=== PATIENT | female | born 1945 | race Caucasian/White ===

== ENCOUNTER 2021-06-30 11:08 | Outpatient (CLI) | payer MEDICARE, OTHER | END 2021-06-30 11:09 | disposition critical access hospital (66) | LOC: EMS 11:08 | DX: R53.1 Weakness (principal); R61 Generalized hyperhidrosis; R55 Syncope and collapse | CPT/HCPCS: A0425; A0429 ==

== ENCOUNTER 2021-06-30 11:32 | Emergency (ER) | payer MEDICARE, OTHER ==
[2021-06-30] MEDS ORDERED: SODIUM CHLORIDE 0.9% 1,000 ML IV STA ×2 (11:54→12:44)
[2021-06-30 12:04] LABS: BASOPHILS % (AUTO) 0.2 %; EOSINOPHILS % (AUTO) 0.1 %; HCT - HEMATOCRIT 47.9 % (37.0-47.0); HGB - HEMOGLOBIN 16.6 g/dL (12.0-16.0); LYMPHOCYTES # (AUTO) 1.2 10^3/uL (1.5-3.5); LYMPHOCYTES % (AUTO) 9.3 %; MEAN CORPUSCULAR HEMOGLOBIN 34.5 pg (27.0-31.0); MEAN CORPUSCULAR HGB CONC 34.7 g/dL (32.0-36.0); MEAN CORPUSCULAR VOLUME 99.6 fL (81.0-99.0); MEAN PLATELET VOLUME 9.2 fL (7.9-10.8); MONOCYTES # (AUTO) 0.6 10^3/uL (0.0-1.0); MONOCYTES % (AUTO) 4.8 %; NEUTROPHILS # (AUTO) 10.6 10^3/uL (1.5-6.6); NEUTROPHILS % (AUTO) 85.3 %; PLT - PLATELET COUNT 253 10^3/uL (130-450); RED BLOOD COUNT 4.81 10^6/uL (4.20-5.40); RED CELL DISTRIBUTION WIDTH 13.2 % (12.0-15.0); WHITE BLOOD COUNT 12.4 x10^3/uL (4.8-10.8)
[2021-06-30 12:18] LABS: ALBUMIN 4.5 g/dL (3.2-5.5); ALBUMIN/GLOBULIN RATIO 1.1 (1.0-2.2); BILIRUBIN,TOTAL 2.9 mg/dL (0.2-1.0); CALCIUM 9.5 mg/dL (8.5-10.3); CREATININE 1.1 mg/dL (0.4-1.0); POTASSIUM 2.9 mmol/L (3.5-5.0); TOTAL PROTEIN 8.6 g/dL (6.7-8.2)
--- NOTE | 2021-06-30 12:45 | ED Physician Documentation ---
History of Present Illness - Stated complaint Stated Complaint: WEAKNESS - Chief complaint Chief Complaint: Neuro - History obtained from History obtained from: Patient - History of Present Illness Timing: Today PD PAST MEDICAL HISTORY - Present Medications Home Medications: Ambulatory Orders Medication Instructions Recorded Confirmed Aspirin [Terry Aspirin] 81 mg PO DAILY 06/30/21 06/30/21 - Allergies Allergies/Adverse Reactions: Allergies Allergy/AdvReac Type Severity Reaction Status Date / Time No Known Drug Allergies Allergy Verified 06/30/21 11:40 Results - Vitals Vitals: Vital Signs - 24 hr 06/30/21 11:37 Temperature 36.7 C Heart Rate 127 H Respiratory 24 Rate Blood Pressure 139/89 H O2 Saturation 98 Oxygen O2 Source Room air - EKG (time done) 1154 Rate: Rate (enter#) (115) Rhythm: Sinus tachycardia [place]: Normal Intervals: Normal [place] QRS: Normal Ischemia: Normal ST segments - Labs Labs: Laboratory Tests 06/30/21 06/30/21 06/30/21 11:58 11:58 11:58 WBC 12.4 H RBC 4.81 Hgb 16.6 H Hct 47.9 H MCV 99.6 H MCH 34.5 H MCHC 34.7 RDW 13.2 Plt Count 253 MPV 9.2 Neut # (Auto) 10.6 H Lymph # (Auto) 1.2 L [place] # (Auto) 0.6 Eos # (Auto) 0.0 Baso # (Auto) 0.0 Absolute Nucleated RBC 0.00 Nucleated RBC % 0.0 Sodium 129 L Potassium 2.9 L Chloride 90 L Carbon Dioxide 22 Anion Gap 17.0 H BUN 14 Creatinine 1.1 H Estimated GFR (MDRD) 49 L Glucose 157 H Calcium 9.5 Total Bilirubin 2.9 H AST 54 H ALT 34 Alkaline Phosphatase 50 Troponin I High Sens 7.4 Total Protein 8.6 H Albumin 4.5 Globulin 4.1 Albumin/Globulin Ratio 1.1 Lipase 46
[2021-06-30 13:01] LABS: MUDS CUTOFF CONCENTRATIONS CUTOFF CONC BELOW:
[2021-06-30 13:03] LABS: GLUCOSE, URINE (UA) NEGATIVE (NEGATIVE); KETONES,URINE (UA) 40 mg/dL (NEGATIVE); LEUKOCYTE ESTERASE, URINE MODERATE (NEGATIVE); NITRITE,URINE NEGATIVE (NEGATIVE); OCCULT BLOOD,URINE NEGATIVE (NEGATIVE); PH,URINE 5.5 PH (5.0-7.5); PROTEIN,URINE 30 mg/dL (NEGATIVE); UROBILINOGEN,URINE 1 (NORMAL) E.U./dL (NORMAL)
[2021-06-30] MEDS ORDERED: METOPROLOL TARTRATE 50 MG TABLET PO STA (13:14)
[2021-06-30 13:32] LABS: BILIRUBIN,URINE NEGATIVE (NEGATIVE); CLARITY,URINE CLEAR (CLEAR); HCG UR QUAL NEGATIVE; ICTOTEST,URINE NEGATIVE
[2021-06-30 13:33] LABS: BACTERIA,URINE Few /HPF (None Seen); EPITHELIAL CELLS,UR None Seen /HPF (<= Few); RBC,URINE N /HPF (0-5); SQUAMOUS EPITHELIAL CELL,UR MOD Squamous (<= Few); WBC CLUMPS,URINE NONE SEEN; WBC,URINE >25 /HPF (0-5)
[2021-06-30 13:48] LABS: AMPHETAMINE SCREEN,URINE NEGATIVE (NEGATIVE); BARBITURATE SCREEN,UR NEGATIVE (NEGATIVE); BENZODIAZEPINES SCREEN, URINE NEGATIVE (NEGATIVE); COCAINE SCREEN URINE NEGATIVE (NEGATIVE); METHADONE SCREEN, URINE NEGATIVE (NEGATIVE); METHAMPHETAMINES SCREEN, URINE NEGATIVE (NEGATIVE); OPIATE SCREEN, URINE NEGATIVE (NEGATIVE); OXYCODONE SCREEN, URINE NEGATIVE (NEGATIVE); PROPOXYPHENE SCREEN, URINE NEGATIVE (NEGATIVE); THC CANNABINOID SCREEN, URINE NEGATIVE (NEGATIVE); TRICYCLIC ANTIDEPRESSANT,URINE NEGATIVE (NEGATIVE)
[2021-06-30] MEDS ORDERED: POTASSIUM CHLORIDE 20 MEQ TABLET PO STA (13:59)
--- NOTE | 2021-06-30 14:48 | Ultrasound Report ---
PROCEDURE: Abdomen Limited INDICATIONS: elevated lfts TECHNIQUE: Real-time focused scanning was performed of the abdomen, with image documentation. COMPARISON: None FINDINGS: Liver is normal in size. Liver is diffusely echogenic. No focal hepatic mass lesions. Gallbladder surgically absent. Biliary tree is nondilated. Common bile duct measures 3.9 mm. Pancreas is obscured by bowel gas and cannot be evaluated. Right kidney measures 10.8 cm long axis. Right kidney is sonographically normal. IMPRESSION: Echogenic liver. Finding typically represents fatty infiltration, however finding is nonspecific and other etiologies including hepatic cirrhosis can reduce a similar appearance. Status post cholecystectomy. Reviewed by: Aundrea Benitez MD, PhD on 06/30/2021 2:47 PM PST Approved by: Aundrea Benitez MD, PhD on 06/30/2021 2:47 PM PST Station ID: [id number]
[2021-06-30 14:49] VITALS: BP 160/70
[2021-06-30 14:50] LABS: FREE T3 5.03 pg/mL (2.5-3.9)
[2021-06-30 14:51] LABS: FREE T4 (FREE THYROXINE) 1.27 ng/dL (0.58-1.64)
--- NOTE | 2021-06-30 14:56 | ED Physician Documentation ---
History of Present Illness - Stated complaint Stated Complaint: WEAKNESS - Chief complaint Chief Complaint: Neuro - History obtained from History obtained from: Patient - Additonal information Additional information: Patient comes emergency department with chief complaint of near syncopal episode today. She states she has been feeling somewhat tired, but has not been ill with anything. She denies chest pain or shortness of breath. She states she was shopping today when she began to feel Mildly lightheaded while on her feet. The patient states that then both of her legs felt weak and as though her knees were going to buckle and she had to sit down until the episode passed. Patient states it took a couple of minutes but then went away. She denies any palpitations. No chest discomfort. No focal deficits. Patient states she feels fairly well now. She states she has been noticing lately that her legs will just randomly give out on her and she will will buckle at the knees. She states she has not had this problem before and is not sure what is going on. In between, she can walk just fine. She denies any nausea or vomiting. No diarrhea. No fevers or chills. No other complaints at this time. Review of Systems Ten Systems: 10 systems reviewed and negative Constitutional: reports: Reviewed and negative Eyes: reports: Reviewed and negative Ears: reports: Reviewed and negative Nose: reports: Reviewed and negative Throat: reports: Reviewed and negative Cardiac: reports: Reviewed and negative Respiratory: reports: Reviewed and negative GI: reports: Reviewed and negative : reports: Reviewed and negative Skin: reports: Reviewed and negative Musculoskeletal: reports: Reviewed and negative Neurologic: reports: Focal weakness (Bilateral lower extremities) Psychiatric: reports: Reviewed and negative Endocrine: reports: Reviewed and negative Immunocompromised: reports: Reviewed and negative PD PAST MEDICAL HISTORY - Present Medications Home Medications: Ambulatory Orders Medication Instructions Recorded Confirmed Aspirin [Ross Aspirin] 81 mg PO DAILY 06/30/21 06/30/21 Levothyroxine [Synthroid] 125 mcg PO QDAC #60 tablet 06/30/21 Potassium Chloride [K-Dur] 20 meq PO BIDWM #30 tablet 06/30/21 - Allergies Allergies/Adverse Reactions: Allergies Allergy/AdvReac Type Severity Reaction Status Date / Time No Known Drug Allergies Allergy Verified 06/30/21 11:40 PD ED PE NORMAL - Vitals Vital signs reviewed: Yes - General General: Alert and oriented X 3, No acute distress, Well developed/nourished - HEENT HEENT: Atraumatic, PERRL, EOMI, Moist mucous membranes - Neck Neck: Supple, no meningeal sign - Cardiac Cardiac: RRR, No murmur, Strong equal pulses - Respiratory Respiratory: No respiratory distress, Clear bilaterally - Abdomen Abdomen: Soft, Non tender, Non distended - Derm Derm: Normal color, Warm and dry, No rash - Extremities Extremities: No deformity, No edema, No calf tenderness / cord - Neuro Neuro: Alert and oriented X 3, cord tire builder 2-12 intact, No motor deficit, No sensory deficit, Normal speech - Psych Psych: Normal mood, Normal affect Results - Vitals Vitals: Oxygen O2 Source Room air - EKG (time done) 1154 Rate: Rate (enter#) (115) Rhythm: Sinus tachycardia [place]: Normal Intervals: Normal [place] QRS: Normal Ischemia: Normal ST segments Compare to prior EKG: Old EKG unavailable Computer interpretation: Agree with computer - Labs Labs: Laboratory Tests 06/30/21 06/30/21 06/30/21 11:47 11:58 11:58 WBC 12.4 H RBC 4.81 Hgb 16.6 H Hct 47.9 H MCV 99.6 H MCH 34.5 H MCHC 34.7 RDW 13.2 Plt Count 253 MPV 9.2 Neut # (Auto) 10.6 H Lymph # (Auto) 1.2 L [place] # (Auto) 0.6 Eos # (Auto) 0.0 Baso # (Auto) 0.0 Absolute Nucleated RBC 0.00 Nucleated RBC % 0.0 Sodium 129 L Potassium 2.9 L Chloride 90 L Carbon Dioxide 22 Anion Gap 17.0 H BUN 14 Creatinine 1.1 H Estimated GFR (MDRD) 49 L Glucose 157 H POC Whole Bld Glucose 170 H Calcium 9.5 Total Bilirubin 2.9 H AST 54 H ALT 34 Alkaline Phosphatase 50 Troponin I High Sens Total Protein 8.6 H Albumin 4.5 Globulin 4.1 Albumin/Globulin Ratio 1.1 Lipase 46 TSH Free T4 Free T3 pg/mL Total T3 Urine Color Urine Clarity Urine pH Ur Specific [place] Urine Protein Urine Glucose (UA) Urine Ketones Urine Occult Blood Urine Nitrite Urine Bilirubin Urine Urobilinogen Ur Leukocyte Esterase Urine RBC Urine WBC Urine WBC Clumps Ur Epithelial Cells Ur Squamous Epith Cells Urine Bacteria Ur Microscopic Review Urine Culture Comments Urine HCG, Qual Urine Opiates Screen Ur Oxycodone Screen Urine Methadone Screen Ur Propoxyphene Screen Ur Barbiturates Screen Ur Tricyclics Screen Ur Phencyclidine Scrn Ur Amphetamine Screen U Methamphetamines Scrn U Benzodiazepines Scrn Urine Cocaine Screen U Cannabinoids Screen Ethyl Alcohol 06/30/21 06/30/21 06/30/21 11:58 11:58 11:58 WBC RBC Hgb Hct MCV MCH MCHC RDW Plt Count MPV Neut # (Auto) Lymph # (Auto) [place] # (Auto) Eos # (Auto) Baso # (Auto) Absolute Nucleated RBC Nucleated RBC % Sodium Potassium Chloride Carbon Dioxide Anion Gap BUN Creatinine Estimated GFR (MDRD) Glucose POC Whole Bld Glucose Calcium Total Bilirubin AST ALT Alkaline Phosphatase Troponin I High Sens 7.4 Total Protein Albumin Globulin Albumin/Globulin Ratio Lipase TSH 6.66 H Free T4 Free T3 pg/mL Total T3 Urine Color Urine Clarity Urine pH Ur Specific [place] Urine Protein Urine Glucose (UA) Urine Ketones Urine Occult Blood Urine Nitrite Urine Bilirubin Urine Urobilinogen Ur Leukocyte Esterase Urine RBC Urine WBC Urine WBC Clumps Ur Epithelial Cells Ur Squamous Epith Cells Urine Bacteria Ur Microscopic Review Urine Culture Comments Urine HCG, Qual Urine Opiates Screen Ur Oxycodone Screen Urine Methadone Screen Ur Propoxyphene Screen Ur Barbiturates Screen Ur Tricyclics Screen Ur Phencyclidine Scrn Ur Amphetamine Screen U Methamphetamines Scrn U Benzodiazepines Scrn Urine Cocaine Screen U Cannabinoids Screen Ethyl Alcohol < 5.0 06/30/21 06/30/21 06/30/21 11:58 11:58 12:50 WBC RBC Hgb Hct MCV MCH MCHC RDW Plt Count MPV Neut # (Auto) Lymph # (Auto) [place] # (Auto) Eos # (Auto) Baso # (Auto) Absolute Nucleated RBC Nucleated RBC % Sodium Potassium Chloride Carbon Dioxide Anion Gap BUN Creatinine Estimated GFR (MDRD) Glucose POC Whole Bld Glucose Calcium Total Bilirubin AST ALT Alkaline Phosphatase Troponin I High Sens Total Protein Albumin Globulin Albumin/Globulin Ratio Lipase TSH Free T4 1.27 Free T3 pg/mL 5.03 H Total T3 1.65 Urine Color DARK YELLOW Urine Clarity CLEAR Urine pH 5.5 Ur Specific [place] 1.025 Urine Protein 30 H Urine Glucose (UA) NEGATIVE Urine Ketones 40 H Urine Occult Blood NEGATIVE Urine Nitrite NEGATIVE Urine Bilirubin NEGATIVE Urine Urobilinogen 1 (NORMAL) Ur Leukocyte Esterase MODERATE H Urine RBC N Urine WBC >25 H Urine WBC Clumps NONE SEEN Ur Epithelial Cells None Seen Ur Squamous Epith Cells MOD Squamous H Urine Bacteria Few Ur Microscopic Review INDICATED Urine Culture Comments NOT INDICATED Urine HCG, Qual NEGATIVE Urine Opiates Screen NEGATIVE Ur Oxycodone Screen NEGATIVE Urine Methadone Screen NEGATIVE Ur Propoxyphene Screen NEGATIVE Ur Barbiturates Screen NEGATIVE Ur Tricyclics Screen NEGATIVE Ur Phencyclidine Scrn NEGATIVE Ur Amphetamine Screen NEGATIVE U Methamphetamines Scrn NEGATIVE U Benzodiazepines Scrn NEGATIVE Urine Cocaine Screen NEGATIVE U Cannabinoids Screen NEGATIVE Ethyl Alcohol - Rads (name of study) Abdominal ultrasound Radiology: Final report received, EMP read indepedently, See rad report (Fatty infiltration of the liver) PD MEDICAL DECISION MAKING - ED course Complexity details: reviewed results, re-evaluated patient, considered differential, d/w patient ED course: The patient was initially worked up with labs, including a TSH, and because of her persistent tachycardia. EKG showed sinus tach. The patient was given a 1 L bolus of 0.9 normal saline while she waited. Labs showed her to have a significantly low potassium at 2.9 and moderate Hyponatremia at 129. She was found to have an elevated bilirubin at 2.9 though she was not jaundiced. Her TSH was found to be 6.66 with elevated fT3 and normal T3 and T4. Ultrasound of her right upper quadrant showed fatty infiltration of the liver but otherwise unremarkable. I check back with the patient who is heart rate had normalized, and she is found to be feeling better. I have given her doses of potassium and of Synthroid, and I will put her on both as an outpatient. She has been advised that she needs to follow-up with her primary care physician to discuss some these issues further. She also needs to drink plenty of water, as dehydration has clearly improved her heart rate, and the lack of hydration was most likely a significant contributing factor in the lightheadedness today. We have discussed the usual indications for return. Departure - Departure Disposition: 01 Home, Self Care Clinical Impression: Hypokalemia, Dehydration Hypothyroidism Qualifiers: Hypothyroidism type: unspecified Qualified Code(s): E03.9 - Hypothyroidism, unspecified Condition: Stable Instructions: ED Dehydration, ED Hypothyroidism, ED Potassium Deficiency Prescriptions: Potassium Chloride [K-Dur] 20 meq PO BIDWM #30 tablet Levothyroxine [Synthroid] 125 mcg PO QDAC #60 tablet Comments: Today, you have been found to have a low potassium and a hypoactive thyroid. Both of these could be causing your leg weakness, and as such, you will be started on some potassium supplements and on a medication for your thyroid. As far as your heart rate being up, you did respond very well to fluids, so it is very important that you drink plenty of water. As we have discussed, aside from any other beverages you might drink, you should aim to drink 8 cups of water per day. You may still drink juice and other beverages, but please avoid drinking alcohol. It is very important that you follow-up with your primary care physician to recheck your thyroid and your potassium. Discharge Date/Time: 06/30/21 15:12
== END 2021-06-30 15:12 | disposition home or self-care (01) ==
LOC: EDUNIT# → ED 11:32
DX: E86.0 Dehydration (principal); E87.6 Hypokalemia; E87.1 Hypo-osmolality and hyponatremia; E03.9 Hypothyroidism, unspecified
CPT/HCPCS: 36415; 76705; 80053; 80306; 81001; 81025; 83690; 84439; 84443; 84480; 84481; 84484; 85025; 93005; 96360; 96361; 99284; A9270; G0480; 80320; 81003; 87086

== ENCOUNTER 2022-06-12 02:11 | Outpatient (CLI) | payer MEDICARE, OTHER | END 2022-06-12 02:12 | disposition critical access hospital (66) | LOC: EMS 02:11 | DX: R25.1 Tremor, unspecified (principal); Z72.89 Other problems related to lifestyle; R32 Unspecified urinary incontinence | CPT/HCPCS: A0425; A0429 ==

== ENCOUNTER 2022-06-12 02:37 | Inpatient (IN) | payer MEDICARE, OTHER ==
[2022-06-12 03:06] LABS: BASOPHILS % (AUTO) 0.1 %; EOSINOPHILS % (AUTO) 0.2 %; HGB - HEMOGLOBIN 13.2 g/dL (12.0-16.0); MEAN CORPUSCULAR HEMOGLOBIN 35.2 pg (27.0-31.0); MEAN CORPUSCULAR HGB CONC 35.7 g/dL (32.0-36.0); MEAN CORPUSCULAR VOLUME 98.7 fL (81.0-99.0); MEAN PLATELET VOLUME 9.4 fL (7.9-10.8); MONOCYTES # (AUTO) 0.7 10^3/uL (0.0-1.0); NEUTROPHILS # (AUTO) 9.1 10^3/uL (1.5-6.6); NEUTROPHILS % (AUTO) 84.2 %; PLT - PLATELET COUNT 203 10^3/uL (130-450); RED BLOOD COUNT 3.75 10^6/uL (4.20-5.40); RED CELL DISTRIBUTION WIDTH 13.1 % (12.0-15.0); WHITE BLOOD COUNT 10.8 x10^3/uL (4.8-10.8)
[2022-06-12 03:22] LABS: ALBUMIN 3.8 g/dL (3.2-5.5); ALBUMIN/GLOBULIN RATIO 1.2 (1.0-2.2); ALKALINE PHOSPHATASE 53 IU/L (42-121); ALT ALANINE AMINOTRANSFERASE 28 IU/L (10-60); AST ASPARTATE AMINOTRANSFERASE 46 IU/L (10-42); BILIRUBIN,TOTAL 2.9 mg/dL (0.2-1.0); BUN - BLOOD UREA NITROGEN 6 mg/dL (6-20); CARBON DIOXIDE - CO2 16 mmol/L (21-32); CHLORIDE 88 mmol/L (101-111); CREATININE 0.9 mg/dL (0.4-1.0); ETOH - ETHANOL < 5.0 mg/dL; GFR - MDRD 61 (>89); GLUCOSE 100 mg/dL (70-100); LIPASE 44 U/L (22-51); POTASSIUM 3.4 mmol/L (3.5-5.0); SODIUM 125 mmol/L (135-145); TOTAL PROTEIN 7.1 g/dL (6.7-8.2)
[2022-06-12 03:30] LABS: PT - PROTHROMBIN TIME 10.8 secs (9.9-12.6)
--- NOTE | 2022-06-12 04:53 | ED Physician Documentation ---
History of Present Illness - Stated complaint Stated Complaint: SHAKING - Chief complaint Chief Complaint: General - History obtained from History obtained from: Patient, EMS - History of Present Illness Timing: Enter time (18:00), Yesterday Pain level max: 0 Pain level now: 0 Improved by: no ameliorating factors Worsened by: generalized weakness is more pronounced when she tries to stand - Additonal information Additional information: BIBA for generalized weakness and tremulousness. Patient says symptoms started approximately 6 PM yesterday (06/12/22), gradual onset but steadily worsening. She denies h/o similar symptoms. Patient called her friend prior to arrival to ask for help with her symptoms (she says she her weakness had progressed to the point of being unable to get out of bed) and friend then called 911. EMS noted multiple empty liquor bottles in/around her house, although patient strongly denies any heavy/regular alcohol intake; she says she only has a few beers on weekends, and she says she did have 2-3 beers earlier in the day Sunday (yesterday) with her friends. Patient says she has not had/seen a primary care provider in at least five years Review of Systems Constitutional: reports: Reviewed and negative Eyes: reports: Reviewed and negative Ears: reports: Reviewed and negative Nose: reports: Reviewed and negative Throat: reports: Reviewed and negative Cardiac: reports: Reviewed and negative Respiratory: reports: Reviewed and negative GI: reports: Reviewed and negative : reports: Reviewed and negative Musculoskeletal: reports: Reviewed and negative Neurologic: reports: Generalized weakness. denies: Focal weakness, Head injury, LOC PD PAST MEDICAL HISTORY - Past Medical History Past Medical History: Yes - Past Surgical History Past Surgical History: Yes General: Cholecystectomy - Present Medications Home Medications: Ambulatory Orders Medication Instructions Recorded Confirmed Aspirin [[place] Aspirin] 81 mg PO DAILY 06/30/21 06/30/21 Levothyroxine [Synthroid] 125 mcg PO QDAC #60 tablet 06/30/21 Potassium Chloride [K-Dur] 20 meq PO BIDWM #30 tablet 06/30/21 LORazepam [Ativan] 1 mg PO BID PRN #14 tablet 06/12/22 Metoprolol Tartrate [Lopressor] 50 mg PO BID #20 tablet 06/12/22 - Allergies Allergies/Adverse Reactions: Allergies Allergy/AdvReac Type Severity Reaction Status Date / Time No Known Drug Allergies Allergy Verified 06/30/21 11:40 - Social History Does the pt smoke?: No Smoking Status: Never smoker Does the pt drink ETOH?: Yes ETOH Use: Beer Does the pt have substance abuse?: No - Immunizations Immunizations are current?: No - POLST Patient has POLST: No PD ED PE NORMAL - Vitals Vital signs reviewed: Yes - General General: Alert and oriented X 3, Well developed/nourished, Other (generalized , symmetric tremulousness; appears anxious, apprehensive) - HEENT HEENT: Other (tacky mucous membranes) - Neck Neck: Supple, no meningeal sign - Cardiac Cardiac: No murmur - Respiratory Respiratory: No respiratory distress, Clear bilaterally - Abdomen Abdomen: Soft, Non tender, Other (RUQ/right low chest wall echymosis without TTP) - Neuro Neuro: Alert and oriented X 3, carpenter 2-12 intact, No sensory deficit, Normal speech, Other (symmetric BLE, BUE weakness, more pronounced in BLE (3/5)) PD ED PE EXPANDED - Cardiac Cardiac: Tachy, Irregularly irregular - Visual Whole body visual: 1 - bruising (large, flat echymosis without TTP) Results - Vitals Vitals: Vital Signs - 24 hr 06/12/22 06/12/22 06/12/22 02:41 03:21 03:30 Temperature 36.3 C L Heart Rate 132 H 122 H 118 H Respiratory 26 H 28 H 22 Rate Blood Pressure 141/66 H 142/104 H 148/75 H O2 Saturation 100 98 97 06/12/22 06/12/22 06/12/22 04:00 04:30 05:03 Temperature Heart Rate 121 H 108 H 98 Respiratory 16 16 20 Rate Blood Pressure 134/84 H 154/84 H 154/84 H O2 Saturation 100 99 99 06/12/22 05:30 Temperature Heart Rate 86 Respiratory 19 Rate Blood Pressure 103/82 H O2 Saturation 100 Oxygen O2 Source Room air - EKG (time done) #1 Rate: Rate (enter#) (111) Rhythm: Atrial fibrillation [place]: Normal QRS: Normal Ischemia: Normal ST segments #2 Rate: Rate (enter#) (102) Rhythm: Sinus tachycardia [place]: Normal Intervals: Normal [place] QRS: Normal Ischemia: Normal ST segments - Labs Labs: Laboratory Tests 06/12/22 06/12/22 06/12/22 02:56 02:56 02:56 WBC 10.8 RBC 3.75 L Hgb 13.2 Hct 37.0 MCV 98.7 MCH 35.2 H MCHC 35.7 RDW 13.1 Plt Count 203 MPV 9.4 Neut # (Auto) 9.1 H Lymph # (Auto) 1.0 L [place] # (Auto) 0.7 Eos # (Auto) 0.0 Baso # (Auto) 0.0 Absolute Nucleated RBC 0.00 Nucleated RBC % 0.0 PT INR Sodium 125 L Potassium 3.4 L Chloride 88 L Carbon Dioxide 16 L Anion Gap 21.0 H BUN 6 Creatinine 0.9 Estimated GFR (MDRD) 61 L Glucose 100 Calcium 9.0 Total Bilirubin 2.9 H AST 46 H ALT 28 Alkaline Phosphatase 53 Total Protein 7.1 Albumin 3.8 Globulin 3.3 Albumin/Globulin Ratio 1.2 Lipase 44 TSH 4.17 Ethyl Alcohol < 5.0 06/12/22 03:12 WBC RBC Hgb Hct MCV MCH MCHC RDW Plt Count MPV Neut # (Auto) Lymph # (Auto) [place] # (Auto) Eos # (Auto) Baso # (Auto) Absolute Nucleated RBC Nucleated RBC % PT 10.8 INR 1.0 Sodium Potassium Chloride Carbon Dioxide Anion Gap BUN Creatinine Estimated GFR (MDRD) Glucose Calcium Total Bilirubin AST ALT Alkaline Phosphatase Total Protein Albumin Globulin Albumin/Globulin Ratio Lipase TSH Ethyl Alcohol PD MEDICAL DECISION MAKING - ED course Complexity details: reviewed old records, reviewed results, re-evaluated patient, considered differential, d/w patient ED course: Patient strongly denies heavy/regular alcohol use although EMS noted multiple empty liquor bottles in and around the house. She only has one previous [facility] ED visit, last June with generalized weakness, found to have mild hyponatremia, hypokalemia, and elevated TSH. She improved with IV fluids and was discharged with prescriptions for potassium and levothyroxine. I do see an EMS report from 2013 which indicates her had called 911 due to patient being weak and unable to care for herself due to alcoholism (her has since and she now lives alone). On tonights tests, she has hyponatremia (125), elevated bilirubin (2.9) which is unchanged from previous result (June 2021) and other LFTs are normal, normal TSH, minimal hypokalemia (3.4). She has improvement of the tremulousness after 1mg IV lorazepam, as well as improvement in heart rate with IV lopressor (5mg x 2 doses IV). However, she is unable to stand and support herself without complete assistance from ED RN. Departure - Departure Disposition: 66 [facility] DC/Xfer Clinical Impression: Generalized weakness, Hyponatremia Prescriptions: LORazepam [Ativan] 1 mg PO BID PRN #14 tablet PRN Reason: Restlessness Metoprolol Tartrate [Lopressor] 50 mg PO BID #20 tablet Comments: The cause of your symptoms (tremulousness, weakness) is not apparent at this time. Your sodium level was low but not low enough that I would attribute your symptoms to this finding. You also had an irregular heart rhythm when you came in to the ER, but after the medications were given through your IV, your heart rate slowed to a normal rate and the rhythm is no longer irregular. I am providing you with prescriptions for lorazepam and metoprolol. These were both given to you in the ER through the IV. Depending on the cause, lorazepam can sometimes help with the shaking/tremors. The metoprolol is usually used for high blood pressure, but I am prescribing it for you to control your heart rate (prevent it from becoming too fast). You need to follow up with your primary care provider, next available appointment, for reevaluation of your symptoms and the abnormal lab results (particularly the low sodium level).
[2022-06-12] MEDS ORDERED: SODIUM CHLORIDE 0.9% 1,000 ML IV STA (05:17)
[2022-06-12] MEDS ORDERED: LORazepam 2 MG/ML VIAL IVP STA (05:17)
[2022-06-12] MEDS ORDERED: METOPROLOL 5 MG/5 ML VIAL IVP STA ×2 (05:17→08:00)
--- NOTE | 2022-06-12 07:41 | XRAY Report ---
PROCEDURE: Chest 1 View X-Ray INDICATIONS: weakness, new onset atrial fibrillation TECHNIQUE: One view of the chest was acquired. COMPARISON: None. FINDINGS: Surgical changes and devices: None. Lungs and pleura: No pleural effusions or pneumothorax. Lungs are clear. Mediastinum: Mediastinal contours appear normal. Heart size is normal. Bones and chest wall: No suspicious bony lesions. Overlying soft tissues appear unremarkable. IMPRESSION: Chest without acute cardiopulmonary abnormalities or focal airspace disease. Reviewed by: Donta Spaulding MD on 06/12/2022 7:40 AM PST Approved by: Donta Spaulding MD on 06/12/2022 7:40 AM [facility] Station ID: [id number]
[2022-06-12] MEDS ORDERED: THIAMINE INJ 100 MG, MAGNESIUM SULFATE 2 GM, MULTIVITAMIN 10 ML, FOLIC ACID INJ 1 MG in... IV ONE ×5 (08:54)
[2022-06-12] MEDS ORDERED: ONDANSETRON ODT 4 MG TABLET TL PRN (08:59)
[2022-06-12] MEDS ORDERED: ACETAMINOPHEN 325 MG TABLET PO PRN (08:59)
[2022-06-12] MEDS ORDERED: ONDANSETRON 4 MG/2 ML VIAL IVP PRN (08:59)
[2022-06-12] MEDS ORDERED: oxyCODONE 5 MG TABLET PO PRN (08:59)
[2022-06-12] MEDS ORDERED: SODIUM CHLORIDE FLUSH 0.9% 10 ML SYRINGE IVP PRN (08:59)
[2022-06-12 10:13] LABS: B. PARAPERTUSSIS- RESP PCR PAN NOT DETECTED; B. PERTUSSIS- RESP PCR PANEL NOT DETECTED; C. PNEUMONIAE- RESP PCR PANEL NOT DETECTED; CORONAVIRUS 229E-RESP PCR NOT DETECTED; CORONAVIRUS HKU1-RESP PCR NOT DETECTED; CORONAVIRUS NL63-RESP PCR NOT DETECTED; CORONAVIRUS OC43-RESP PCR NOT DETECTED; HUMAN METAPNEUMOVIRUS NOT DETECTED; INFLUENZA A- RESP PCR PANEL NOT DETECTED; INFLUENZA B - RESP PCR PANEL NOT DETECTED; M. PNEUMONIAE- RESP PCR PANEL NOT DETECTED; PARAINFLUENZA VIRUS 1 NOT DETECTED; PARAINFLUENZA VIRUS 2 NOT DETECTED; PARAINFLUENZA VIRUS 3 NOT DETECTED; PARAINFLUENZA VIRUS 4 NOT DETECTED; RHINOVIRUS/ENTEROVIRUS NOT DETECTED; RSV- RESP PCR PANEL NOT DETECTED; SARS-CoV-2 -RESP PCR PANEL NOT DETECTED
[2022-06-12] MEDS: chlordiazePOXIDE 5 MG CAPSULE PO SCH ×3 (11:35→21:19)
[2022-06-12] MEDS: SODIUM CHLORIDE FLUSH 0.9% 10 ML SYRINGE IVP SCH ×3 (11:41→23:45)
--- NOTE | 2022-06-12 13:42 | HISTORY & PHYSICAL EXAMINATION ---
Chief Complaint - Chief Complaint Chief Complaint: wobbly legs and shaking body History of Present Illness - Admitted From Admitted From:: home via EMS - History Obtained From Records Reviewed: [facility] History obtained from: patient and Dr. De Exam Limitations: none - History of Present Illness HPI Comment/Other: 76-year-old female who lives alone in her own home and called EMS in the barrel turner hours of today because she started shaking around 6:00 last night. And she has not been able to stop being tremulous. She feels weak, and her legs just will not support her. She denies fever, chills. She denies sore throat, runny nose. She does not feel as if her stomach is affected. No nausea, vomiting. She has no urgency, frequency. Very rarely will she be incontinent of urine. She used to drink 1/5 of michelle a day and started feeling "poorly" with that. She has been doing it for many decades. While she has had many episodes of intoxication and falls, she does not really remember going through withdrawal. She is never had blackouts, she is never had seizures, and she does not really remember being tremulous. Shecut back and has been drinking 3 beers, 3 times a week. She last drank June 11 when she had lunch with a friend. This shake started that night at 6 PM. Again negative review of systems with this. She then called the ambulance at approximately 2 in the morning today and the a mbulance brought her to the ED. Temperature is 36.3. Heart rate 132. Blood pressure 141/66. Respirations 26. She is 100% on room air. She is 5 feet 5 inches tall and weighs [address] De found to be tremulous, but alert, oriented. She remained slightly hypertensive and tachycardic during her stay and he gave her a liter of fluids. Her labs showed sodium of 125, potassium 3.4, carbon dioxide 16. Anion gap 21. BUN and gait creatinine were normal. Total bili is 2.9, AST 46. TSH 4.17. White cell count was normal. Hemoglobin 13.2. Platelets 203. Alcohol level was less than 5. Viral PCR panel was negative. Chest x-ray had no acute cardiopulmonary abnormalities or focal airsp rosalinda disease. He was getting ready to send her home because she really did not need treatment other than the liter of fluid. Vital signs appeared stable. However when he tried to get her up and get her to walk, she was very unsteady on her feet, very shaky. She was not safe to return to home today. After the case was discussed, he Asked that she is asked for observation status to see if hydration, a banana bag, and evaluation with PT will help identify what she can do to stay safe at home. 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 No major medical illnesses. Dad in his 70s of complications of a surgery. She is very sad about this because he was a very healthy man who golfed on a daily basis. 1 brother was assassinated in [facility]. This was in relation to the "walker investigation". 1 brother is healthy and is recently retired in [place]. No's children Living arrangement: At home Living Situation: Alone Social History Notes: From [place]. Dad was a recruiting she for the [employer]. 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 She had been twice and then met her third when she was in the [employer]. They have been together for 30 for 35 years when he 10 years ago. 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 She left [employer] when she was laid off after 911. She was living in [place] with her when he retired and they decided to move to [facility]. She denies any recreational substance abuse. Never smoked. 1/5 of michelle a day for decades until 6 months ago and now it is 3 beers, 3 times a week. - Substance History Abuse: Recurrent use of substance despite neg consequences: Alcohol - POLST Patient has POLST: No POLST Status: Full Code Meds/Allgy - Home Medications Home Medications: Ambulatory Orders Medication Instructions Recorded Confirmed Aspirin [[place] Aspirin] 81 mg PO DAILY 06/30/21 06/12/22 Cholecalciferol [Vitamin D3] 25 mcg PO DAILY 06/12/22 06/12/22 LORazepam [Ativan] 1 mg PO BID PRN #14 tablet 06/12/22 Melatonin 1 tab PO QPM 06/12/22 06/12/22 Metoprolol Tartrate [Lopressor] 50 mg PO BID #20 tablet 06/12/22 Multivitamin 1 tab PO DAILY 06/12/22 06/12/22 Tetrahydrozoline HCl [Visine] 1 drops EACHEYE DAILY PRN 06/12/22 06/12/22 - Allergies Allergies/Adverse Reactions: Allergies Allergy/AdvReac Type Severity Reaction Status Date / Time No Known Drug Allergies Allergy Verified 06/30/21 11:40 Review of Systems - Constitutional Constitutional: reports: Weight loss (clothes a little looser these last few months. Was a 34 inch waste and now 32 inch). denies: Fatigue, Fever, Chills, Malaise, Weakness, Poor appetite, Diaphoresis - Eyes Eyes: reports: Blurred vision (With aging. She says at far distance is still fine. No history of glaucoma or cataracts.). denies: Pain, Irritation, Amaurosis - Ears, Nose & Throat Ears, Nose & Throat: denies: Ear pain, Hearing loss, Tinnitus, Vertigo, Sore throat, Hoarseness - Cardiovascular Cariovascular: reports: Irregular heart rate. denies: Palpitations, Chest pain, Edema, Syncope, Exertional dyspnea, Decr. exercise tolerance - Respiratory Respiratory: denies: Cough, Sputum production, Wheezing, Snoring - Gastrointestinal Gastrointestinal: denies: Abdominal pain, Abdominal distention, Constipation, Diarrhea, Change in bowel habits, Vomiting, Coffee grounds emesis, Refl ux/heartburn - Genitourinary Genitourinary: reports: Incontinence (Rarely). denies: Dysuria, Frequency, Urgency, Hematuria - Musculoskeletal Musculoskeletal: denies: Muscle pain, Back pain, Muscle aches, Stiffness, Joint pain - Integumentary Integumentary: denies: Rash, Pruritis, Lesions, Dryness - Neurological Neurological: reports: General weakness, Incoordination, Other (Describes multiple falls that are mechanical in nature over the last couple of years). denies: Focal weakness, Headache, Dizziness, Seizures - Psychiatric Psychiatric: denies: Depression, Anxiety, Suicidal - Endocrine Endocrine: denies: Polyuria, Polydypsia, Polyphagia - Hematologic/Lymphatic Hematologic/Lymphatic: denies: Anemia, Bruising, Petechiae - All Other Systems All Other Systems: reports: Other (She has not seen a doctor in years. She has been trying to get a doctor in [place] but has not been able to identify someone to see) Prior Level of Functionality: Other than the fall she describes her self is completely independent. Drives a car, pays her own bills, does her own housekeeping, does her own grocery shopping and cooks for herself. Exam - Vital Signs Reviewed Vital Signs: Yes Vital Signs: Vital Signs x48h Temp Pulse BP Pulse Ox 06/12/22 10:30 36.4 C L 95 127/76 100 - Physical Exam General Appearance: positive: No acute distress, Alert, Other (Even though alcohol level is undetectable on toxicology screen, this woman does smell of alcohol.) Eyes Bilateral: positive: PERRL, EOMI ENT: positive: Pharynx nml Neck: positive: No JVD Respiratory: positive: No respiratory distress. negative: Wheezes, Rales, Rhonchi Cardiovascular: positive: Regular rate & rhythm, Systolic murmur. negative: Gallop/S4, Friction rub Peripheral Pulses: positive: 1+ Abdomen: positive: Non-tender, No organomegaly, Nml bowel sounds, No distention Skin: positive: Warm, Dry. negative: Diaphoresis, Pallor Extremities: positive: Full ROM. negative: No pedal edema Neurologic/Psychiatric: positive: Oriented x3, CN's nml (2-12). negative: Motor nml (she sways w Romberg but F>N intact. No resting tremor. Needs 1 person assist to stand from sitting. Sways. Legs want to buckle and she sits down immediately) Conclusion/Plan - Problem List (1) Generalized weakness Conclusion/Plan: By her description this generalized weakness and tremulousness is an abrupt onset. She describes her self is completely independent with activities of living and not needing any durable medical equipment. In the differential diagnosis for abrupt illness such as this, the ER doctor and I have considered infection, stroke, cardiac causes such as arrhythmia/[place], drug-induced, alcohol withdrawal. So far her work-up shows probable mild alcohol withdrawal. Mild hyponatremia. She is tachycardic, mildly hypertensive. She has no evidence of infection on exam, UA, chest x-ray. No focal findings or neurologic symptoms of stroke. She does not take any medications that would do this. She does have a history of A. fib and this uncontrolled today. Plan: Observation status IV fluids for hydration and to correct hyponatremia Control withdrawal with Librium Control heart rate (2) Hyponatremia Conclusion/Plan: And Hypokalemia. Most likely due to hypovolemic status from alcohol and decreased p.o. intake. Plan: Normal saline IV fluids to continue Recheck BMP this afternoon to see if hepatic in the right direction Encourage p.o. 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 Plan: Physical therapy evaluation (4) Alcohol abuse Conclusion/Plan: She is adamant that she will stop drinking completely after I explained to her what is going on. She has been trying to cut back on her own because the fifth of michelle a day which is making her feel too "sick". She is hoping that as she gets through the next day or 2 she will not be so tremulous at home.She will also receive intravenous banana bag for today. I have started on Librium 5 mg 3 times a day. I will not use CIWA protocol quite yet. If she continues to be tachycardic, hypertensive, tremulous, delusional, I will start CIWA protocol then. Tomorrow I will transition her to p.o. thiamine, folate, vitamin. This led to a larger conversation about her overall status living alone, alcohol abuse, probable depression. She is going to be designating her best friend Sparkle is power of civil litigation attorney. I encouraged her to make sure she makes contact with an civil litigation attorney to get DURABLE POWER OF KETTLE WORKER and power of civil litigation attorney in place. I would hate for this patient to be admitted with no one to be able to speak for her in case she was unconscious and could not verbalize her own wishes. At this time the patient states that she has relatively stable social support system. She likes [place] friends. [place] She has enough gris from them that she would like to be live a little bit longer. With Dr. Morris she would like to be a full code (5) Atrial fibrillation Conclusion/Plan: Longstanding duration according to one of the ER records. But she says she is never really seen a physician for this. Never gotten chronic medication for. Nor she had a work-up for it. Plan: Metoprolol 25 p.o. twice daily to be started Neck step would be anticoagulation Will check echocardiogram first and then anticoagulate. [id number] score is 3 points which is 3.2 %/year stroke risk and 90,000 patients. And a 4% risk of embolism. At 3 points, she is an anticoagulation candidate. At this time, I hesitate to start her on anticoagulation because I do not know if she is willing to stop drinking. Qualifiers: Atrial fibrillation type: unspecified Qualified Code(s): I48.91 - Unspecified atrial fibrillation (6) Hypertension Conclusion/Plan: This has been present in her previous ER visits. But she is an alcohol abuser so I do not know if her high blood pressure is due to alcohol abuse or to essential hypertension. She will be started on a beta-jim for her atrial fibrillation rate controlled. If she is able to stop drinking and controll her heart rate she may not need any more medication other than the metoprolol. Qualifiers: Hypertension type: primary hypertension Qualified Code(s): I10 - Essential (primary) hypertension - Lab Results Lab results reviewed: Yes Fish Bones: 06/12/22 02:56 06/12/22 14:12 - Diagnostic Imaging Results Diagnostic Imaging Results: positive: Final report reviewed
[2022-06-12 14:27] LABS: CALCIUM 8.4 mg/dL (8.5-10.3); CREATININE 0.6 mg/dL (0.4-1.0); POTASSIUM 3.1 mmol/L (3.5-5.0)
--- NOTE | 2022-06-12 14:30 | PHARMACY PROGRESS NOTE ---
- Best Possible Medication History Admit Date and Time: 06/12/22 0859 Processed by: Pharmacy Medication History completed: Yes Patient Interview: Completed Patient reports she has not seen a PCP for several years, so she is no longer taking any prescription medications. Metoprolol and lorazepam on the med list are new prescriptions from her ER visit today. As the person ultimately responsible for medication therapy, providers are able to order a medication from an existing home medication list in [facility] via the "Reconcile Routine" prior to Confirmation of that medication by operations support specialist. Such practice is discouraged except when the physician, in their clinical judgment, deems that a medical need exists for a medication without regard to previous use.
[2022-06-12] MEDS: POTASSIUM CHLORIDE 20 MEQ TABLET PO SCH (16:32)
[2022-06-12] MEDS: METOPROLOL TARTRATE 25 MG TABLET PO SCH (21:19)
[2022-06-13 06:58] LABS: CALCIUM 8.4 mg/dL (8.5-10.3); CREATININE 0.5 mg/dL (0.4-1.0); POTASSIUM 2.8 mmol/L (3.5-5.0)
[2022-06-13 07:08] LABS: BASOPHILS % (AUTO) 0.2 %; EOSINOPHILS # (AUTO) 0.1 10^3/uL (0.0-0.7); EOSINOPHILS % (AUTO) 1.3 %; HGB - HEMOGLOBIN 11.8 g/dL (12.0-16.0); LYMPHOCYTES # (AUTO) 1.4 10^3/uL (1.5-3.5); LYMPHOCYTES % (AUTO) 23.3 %; MEAN CORPUSCULAR HEMOGLOBIN 35.9 pg (27.0-31.0); MEAN CORPUSCULAR HGB CONC 34.7 g/dL (32.0-36.0); MEAN CORPUSCULAR VOLUME 103.3 fL (81.0-99.0); MEAN PLATELET VOLUME 9.8 fL (7.9-10.8); MONOCYTES # (AUTO) 0.5 10^3/uL (0.0-1.0); MONOCYTES % (AUTO) 7.6 %; NEUTROPHILS # (AUTO) 4.2 10^3/uL (1.5-6.6); NEUTROPHILS % (AUTO) 67.4 %; PLT - PLATELET COUNT 148 10^3/uL (130-450); RED BLOOD COUNT 3.29 10^6/uL (4.20-5.40); RED CELL DISTRIBUTION WIDTH 13.8 % (12.0-15.0); WHITE BLOOD COUNT 6.2 x10^3/uL (4.8-10.8)
[2022-06-13] MEDS ORDERED: MULTIVITAMIN 10 ML, THIAMINE INJ 100 MG, MAGNESIUM SULFATE 2 GM, FOLIC ACID INJ 1 MG in... IV SCH ×5 (09:00)
[2022-06-13] MEDS: chlordiazePOXIDE 5 MG CAPSULE PO SCH (11:51)
[2022-06-13] MEDS: POTASSIUM CHLORIDE 20 MEQ TABLET PO SCH ×2 (11:51→17:06)
[2022-06-13] MEDS: METOPROLOL TARTRATE 25 MG TABLET PO SCH ×2 (11:51→20:08)
[2022-06-13] MEDS: SODIUM CHLORIDE FLUSH 0.9% 10 ML SYRINGE IVP SCH ×3 (11:52→23:49)
[2022-06-13] MEDS: PRENATAL VITAMIN TABLET PO SCH (12:03)
[2022-06-13] MEDS: THIAMINE 100 MG TABLET PO SCH (12:03)
[2022-06-13] MEDS: FOLIC ACID 1 MG TABLET PO SCH (12:03)
--- NOTE | 2022-06-13 13:02 | PROVIDER PROGRESS NOTE ---
Subjective - Prog Note Date Prog Note Date: 06/13/22 Prog Note Time: 12:59 - Subjective Pt reports feeling: Improved Subjective: While she says she feels better and she says that the shaking in her hand is improved tremendously, she still a little shaky getting up to walk to the bathroom. She said she almost could not get off the toilet. She was able to eat breakfast. Nursing reports that she is alert, cooperative, but confused. She cannot remember if she is in [place], [place], or [place]. Sometimes she thinks she is in [place] at the hospital there (there is not one) or if she is at [facility]. She denies chest pain, palpitations, shortness of breath. Current Medications - Current Medications Current Medications: Active Medications Acetaminophen (Acetaminophen 325 Mg Tablet) 650 mg PO Q4HR PRN PRN Reason: Pain 1 to 4, or Fever Chlordiazepoxide HCl (Chlordiazepoxide 5 Mg Capsule) 5 mg PO TID [facility] Last Admin: 06/13/22 11:51 Dose: Not Given Folic Acid (Folic Acid 1 Mg Tablet) 1 mg PO DAILY [facility] Last Admin: 06/13/22 12:03 Dose: 1 mg Metoprolol Tartrate (Metoprolol Tartrate 25 Mg Tablet) 25 mg PO BID [facility] Last Admin: 06/13/22 11:51 Dose: Not Given Ondansetron HCl (Ondansetron Odt 4 Mg Tablet) 4 mg TL Q6HR PRN PRN Reason: Nausea / Vomiting Ondansetron HCl (Ondansetron 4 Mg/2 Ml Vial) 4 mg IVP Q6HR PRN PRN Reason: Nausea / Vomiting Oxycodone HCl (Oxycodone 5 Mg Tablet) 5 mg PO Q4HR PRN PRN Reason: Pain 5 to 7 Potassium Chloride (Potassium Chloride 20 Meq Tablet) 40 meq PO BIDWM [facility] Stop: 06/14/22 08:01 Last Admin: 06/13/22 11:51 Dose: Not Given Multivit/Folic Acid/Iron ( Vitamin Tablet) 1 tab PO DAILYWM [facility] Last Admin: 06/13/22 12:03 Dose: 1 tab Sodium Chloride (Sodium Chloride Flush 0.9% 10 Ml Syringe) 10 ml IVP PRN PRN PRN Reason: NEEDED PER PROVIDER ORDERS Sodium Chloride (Sodium Chloride Flush 0.9% 10 Ml Syringe) 10 ml IVP 0100,0 900,1700 [facility] Last Admin: 06/13/22 11:52 Dose: Not Given Thiamine HCl (Thiamine 100 Mg Tablet) 100 mg PO DAILY [facility] Last Admin: 06/13/22 12:03 Dose: 100 mg Aspirin [[place] Aspirin] 81 mg PO DAILY 06/30/21 Cholecalciferol [Vitamin D3] 25 mcg PO DAILY 06/12/22 Melatonin 1 tab PO QPM 06/12/22 Multivitamin 1 tab PO DAILY 06/12/22 Tetrahydrozoline HCl [Visine] 1 drops EACHEYE DAILY PRN 06/12/22 Objective - Vital Signs/Intake & Output Reviewed Vital Signs: Yes Vital Signs: Vital Signs x48h Temp Pulse Resp BP Pulse Ox 06/13/22 11:35 36.4 C L 81 18 149/65 H 97 06/13/22 08:24 36.5 C 91 20 166/84 H 99 Intake & Output: Intake & Output 06/10/22 06/11/22 06/12/22 06/13/22 23:59 23:59 23:59 23:59 Intake Total 2945.200 980 Output Total 1100 500 Balance 1845.200 480 - Objective General Appearance: positive: No acute distress, Alert, Other (Normal speech patterns, no tremulousness, no diaphoresis, but mildly confused. Pleasant and cooperative.) Eyes Bilateral: positive: PERRL, EOMI ENT: positive: No signs of dehydration Neck: positive: No JVD. negative: Stiff neck Respiratory: positive: No respiratory distress. negative: Wheezes, Rales, Rhonchi Cardiovascular: positive: Regular rate & rhythm Abdomen: positive: Non-tender, No organomegaly, Nml bowel sounds, No distention Skin: positive: Warm, Dry Extremities: positive: Full ROM, No pedal edema Neurologic/Psychiatric: positive: CN's nml (2-12), Disoriented to place, Disoriented to time. negative: Motor nml (Even though she says that her tremors are gone, very slight tremulousness present as she holds out her hands for me. Ataxic gait with sitting up and standing) - Lab Results Fish Bones: 06/13/22 05:32 06/13/22 05:32 Other Labs: Lab Results x24hrs 06/13/22 06/13/22 06/12/22 Range/Units 05:32 05:32 14:12 WBC 6.2 (4.8-10.8) x10^3/uL RBC 3.29 L (4.20-5.40) 10^6/uL Hgb 11.8 L (12.0-16.0) g/dL Hct 34.0 L (37.0-47.0) % MCV 103.3 H (81.0-99.0) fL MCH 35.9 H (27.0-31.0) pg MCHC 34.7 (32.0-36.0) g/dL RDW 13.8 (12.0-15.0) % Plt Count 148 (130-450) 10^3/uL MPV 9.8 (7.9-10.8) fL Neut # (Auto) 4.2 (1.5-6.6) 10^3/uL Lymph # (Auto) 1.4 L (1.5-3.5) 10^3/uL [place] # (Auto) 0.5 (0.0-1.0) 10^3/uL Eos # (Auto) 0.1 (0.0-0.7) 10^3/uL Baso # (Auto) 0.0 (0.0-0.1) 10^3/uL Absolute Nucleated RBC 0.00 x10^3/uL Nucleated RBC % 0.0 /100WBC Sodium 134 L 131 L (135-145) mmol/L Potassium 2.8 L 3.1 L (3.5-5.0) mmol/L Chloride 99 L 95 L (101-111) mmol/L Carbon Dioxide 24 19 L (21-32) mmol/L Anion Gap 11.0 17.0 H (6-13) BUN 5 L 7 (6-20) mg/dL Creatinine 0.5 0.6 (0.4-1.0) mg/dL Estimated GFR (MDRD) 121 98 (>89) Glucose 100 96 (70-100) mg/dL Calcium 8.4 L 8.4 L (8.5-10.3) mg/dL ABX Reporting Has patient been on IV antibiotics over the past 48 hours?: No Assessment/Plan - Problem List (1) Generalized weakness Impression: By her description this generalized weakness and tremulousness was abrupt in onset. She describes her self as completely independent with activities of living and not needing any durable medical equipment. In the differential diagnosis for abrupt illness such as this, the ER doctor and I have considered infection, stroke, cardiac causes such as arrhythmia/MD, drug-induced, alcohol withdrawal. Her work-up in the emergency room yesterday showed probable mild alcohol withdrawal. Mild hyponatremia. She was tachycardic, mildly hypertensive. She has no evidence of infection on exam, UA, chest x-ray. No focal findings or neurologic symptoms of stroke. She does not take any medications that would do this. She does have a history of A. fib and rate was uncontrolled on admission. Treatment has been Librium 5 mg 3 times daily. Continues to be hypertensive in the 140s and 160s. Tachycardia was 105 last night. Since the metoprolol has been started pulse has been in the 80s. No fever. She is also received IV fluids. Ate her breakfast today. Plan: Observation status will be changed to inpatient status since she is not quite ready for discharge due to her confusion. I have canceled physical therapy evaluation since she is getting up in the room by herself. She is ataxic but follows prompts quite nicely. Hyponatremia is improving with IV fluids. She still is hypokalemic and I will supplement that. (2) Hyponatremia Conclusion/Plan: And Hypokalemia. Most likely due to hypovolemic status from alcohol and decreased p.o. intake. Some response with improving sodium. Not quite normal yet. Potassium still needs supplement. 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 Plan: Physical therapy evaluation cancellled since she is not acute with this and I expect she will need outpatient eval. (4) Alcohol abuse Conclusion/Plan: She is adamant that she will stop drinking completely after I explained to her what is going on. She has been trying to cut back on her own because the fifth of michelle a day was making her feel too "sick". She is hoping that as she gets through the next day or 2 she will not be so tremulous at home. She has received one intravenous banana bag. I started on Librium 5 mg 3 times a day. She continues to be hypertensive, but not tachycardic and tremulousnous has improved. But she is confused.On p.o. thiamine, folate, vitamin today. 06/12 I had a larger conversation about her overall status living alone, alcohol abuse, probable depression. She is going to be designating her best friend Sparkle is power of securities attorney. I encouraged her to make sure she makes contact wi th an securities attorney to get DURABLE POWER OF FAMILY MEDICINE CHAIR and power of securities attorney in place. I would hate for this patient to be admitted with no one to be able to speak for her in case she was unconscious and could not verbalize her own wishes. At this time the patient states that she has relatively stable social support system. She likes [place] friends. [place] She has enough gris from them that she would like to be live a little bit longer. Full code Plan: Increase librium to 10 mg po tid. continue po vitamins. (5) Atrial fibrillation Conclusion/Plan: Longstanding duration according to one of the ER records. But she says she is never really seen a physician for this. Never gotten chronic medication for. Nor she had a work-up for it. Today preliminary report of echocardiogram has normal LVEF at 55 to 60% with impaired relaxation consistent with grade 1 diastolic dysfunction. No regional wall motion abnormalities. Left atrial volume index is normal. Right atrial volume index is normal. Mild mitral regurgitation. Trace tricuspid regurgitation. No aortic stenosis. She is on metoprolol 25 mg po bid and rate is controlled. Plan: Next step would be anticoagulation [id number] score is 3 points which is 3.2 %/year stroke risk and 90,000 patients. And a 4% risk of embolism. At 3 points, she is an anticoagulation c andidate. At this time, I hesitate to start her on anticoagulation because I do not know if she is willing to stop drinking. I will wait for her to regain her baseline sensorium before I would consider starting her on Eliquis or Xarelto. Qualifiers: Atrial fibrillation type: unspecified Qualified Code(s): I48.91 - Unspecified atrial fibrillation (6) Hypertension Conclusion/Plan: This has been present in her previous ER visits. But she is an alcohol abuser so I do not know if her high blood pressure is due to alcohol abuse or to essential hypertension. I started her on a beta-jim for her atrial fibrillation rate controlled. If she is able to stop drinking and have control of her heart rate with metoprolol, she may not need any more medication other than the metoprolol. No change in meds for today. Qualifiers: Hypertension type: primary hypertension Qualified Code(s): I10 - Essential (primary) hypertension
[2022-06-13] MEDS ORDERED: chlordiazePOXIDE 5 MG CAPSULE PO SCH (14:00)
[2022-06-13] MEDS: chlordiazePOXIDE 25 MG CAPSULE PO SCH ×2 (17:53→23:48)
[2022-06-14] MEDS: chlordiazePOXIDE 25 MG CAPSULE PO SCH ×4 (05:43→23:58)
[2022-06-14 08:01] LABS: BASOPHILS % (AUTO) 0.4 %; EOSINOPHILS # (AUTO) 0.2 10^3/uL (0.0-0.7); EOSINOPHILS % (AUTO) 3.4 %; HCT - HEMATOCRIT 35.5 % (37.0-47.0); HGB - HEMOGLOBIN 12.1 g/dL (12.0-16.0); LYMPHOCYTES # (AUTO) 1.5 10^3/uL (1.5-3.5); LYMPHOCYTES % (AUTO) 26.6 %; MEAN CORPUSCULAR HEMOGLOBIN 35.4 pg (27.0-31.0); MEAN CORPUSCULAR HGB CONC 34.1 g/dL (32.0-36.0); MEAN CORPUSCULAR VOLUME 103.8 fL (81.0-99.0); MONOCYTES # (AUTO) 0.6 10^3/uL (0.0-1.0); MONOCYTES % (AUTO) 10.8 %; NEUTROPHILS # (AUTO) 3.3 10^3/uL (1.5-6.6); NEUTROPHILS % (AUTO) 58.4 %; PLT - PLATELET COUNT 150 10^3/uL (130-450); RED BLOOD COUNT 3.42 10^6/uL (4.20-5.40); WHITE BLOOD COUNT 5.6 x10^3/uL (4.8-10.8)
[2022-06-14] MEDS: FOLIC ACID 1 MG TABLET PO SCH (08:06)
[2022-06-14] MEDS: POTASSIUM CHLORIDE 20 MEQ TABLET PO SCH (08:06)
[2022-06-14] MEDS: PRENATAL VITAMIN TABLET PO SCH (08:06)
[2022-06-14] MEDS: METOPROLOL TARTRATE 25 MG TABLET PO SCH ×2 (08:06→21:19)
[2022-06-14] MEDS: THIAMINE 100 MG TABLET PO SCH (08:07)
[2022-06-14 08:08] LABS: CALCIUM 9.1 mg/dL (8.5-10.3); CREATININE 0.5 mg/dL (0.4-1.0); POTASSIUM 3.4 mmol/L (3.5-5.0)
[2022-06-14] MEDS: SODIUM CHLORIDE FLUSH 0.9% 10 ML SYRINGE IVP SCH ×3 (08:08→16:41)
--- NOTE | 2022-06-14 12:04 | PROVIDER PROGRESS NOTE ---
Subjective - Prog Note Date Prog Note Date: 06/14/22 Prog Note Time: 12:02 - Subjective Pt reports feeling: Improved Subjective: Jose Francisco is a very talkative woman who is improving but still disoriented. Today she told me that currently she is in her own home despite lots of people being in and out of her room. When I asked her if she normally has all these strangers coming in and out she says "good point, but I'm at home". Current Medications - Current Medications Current Medications: Active Medications Acetaminophen (Acetaminophen 325 Mg Tablet) 650 mg PO Q4HR PRN PRN Reason: Pain 1 to 4, or Fever Chlordiazepoxide HCl (Chlordiazepoxide 25 Mg Capsule) 25 mg PO Q6HR [facility] Last Admin: 06/14/22 11:51 Dose: 25 mg Folic Acid (Folic Acid 1 Mg Tablet) 1 mg PO DAILY [facility] Last Admin: 06/14/22 08:06 Dose: 1 mg Metoprolol Tartrate (Metoprolol Tartrate 25 Mg Tablet) 25 mg PO BID [facility] Last Admin: 06/14/22 08:06 Dose: 25 mg Ondansetron HCl (Ondansetron Odt 4 Mg Tablet) 4 mg TL Q6HR PRN PRN Reason: Nausea / Vomiting Ondansetron HCl (Ondansetron 4 Mg/2 Ml Vial) 4 mg IVP Q6HR PRN PRN Reason: Nausea / Vomiting Oxycodone HCl (Oxycodone 5 Mg Tablet) 5 mg PO Q4HR PRN PRN Reason: Pain 5 to 7 Multivit/Folic Acid/Iron ( Vitamin Tablet) 1 tab PO DAILYWM [facility] Last Admin: 06/14/22 08:06 Dose: 1 tab Sodium Chloride (Sodium Chloride Flush 0.9% 10 Ml Syringe) 10 ml IVP PRN PRN PRN Reason: NEEDED PER PROVIDER ORDERS Sodium Chloride (Sodium Chloride Flush 0.9% 10 Ml Syringe) 10 ml IVP 0100,0900 ,1700 [facility] Last Admin: 06/14/22 10:05 Dose: Not Given Thiamine HCl (Thiamine 100 Mg Tablet) 100 mg PO DAILY [facility] Last Admin: 06/14/22 08:07 Dose: 100 mg Aspirin [[place] Aspirin] 81 mg PO DAILY 06/30/21 Cholecalciferol [Vitamin D3] 25 mcg PO DAILY 06/12/22 Melatonin 1 tab PO QPM 06/12/22 Multivitamin 1 tab PO DAILY 06/12/22 Tetrahydrozoline HCl [Visine] 1 drops EACHEYE DAILY PRN 06/12/22 Objective - Vital Signs/Intake & Output Vital Signs: Vital Signs x48h Temp Pulse Resp BP BP Pulse Ox 06/14/22 08:48 36.5 C 87 18 107/61 98 06/14/22 08:06 156/76 H Intake & Output: Intake & Output 06/11/22 06/12/22 06/13/22 06/14/22 23:59 23:59 23:59 23:59 Intake Total 2945.200 2870 270 Output Total 1100 1600 Balance 5211.172 9714 270 - Objective General Appearance: positive: No acute distress, Alert Eyes Bilateral: positive: PERRL, EOMI ENT: positive: No signs of dehydration Neck: positive: No JVD Respiratory: positive: No respiratory distress, Breath sounds nml Cardiovascular: positive: Regular rate & rhythm Abdomen: positive: Non-tender, No organomegaly, Nml bowel sounds, No distention Skin: positive: Warm, Dry Extremities: positive: Non-tender, Full ROM, Nml appearance Neurologic/Psychiatric: positive: CN's nml (2-12), Mood/affect nml, Disoriented to place, Disoriented to time - Lab Results Fish Bones: 06/14/22 07:54 06/14/22 07:54 Other Labs: Lab Results x24hrs 06/14/22 06/14/22 Range/Units 07:54 07:54 WBC 5.6 (4.8-10.8) x10^3/uL RBC 3.42 L (4.20-5.40) 10^6/uL Hgb 12.1 (12.0-16.0) g/dL Hct 35.5 L (37.0-47.0) % MCV 103.8 H (81.0-99.0) fL MCH 35.4 H (27.0-31.0) pg MCHC 34.1 (32.0-36.0) g/dL RDW 14.0 (12.0-15.0) % Plt Count 150 (130-450) 10^3/uL MPV 10.0 (7.9-10.8) fL Neut # (Auto) 3.3 (1.5-6.6) 10^3/uL Lymph # (Auto) 1.5 (1.5-3.5) 10^3/uL [place] # (Auto) 0.6 (0.0-1.0) 10^3/uL Eos # (Auto) 0.2 (0.0-0.7) 10^3/uL Baso # (Auto) 0.0 (0.0-0.1) 10^3/uL Absolute Nucleated RBC 0.00 x10^3/uL Nucleated RBC % 0.0 /100WBC Sodium 134 L (135-145) mmol/L Potassium 3.4 L (3.5-5.0) mmol/L Chloride 99 L (101-111) mmol/L Carbon Dioxide 26 (21-32) mmol/L Anion Gap 9.0 (6-13) BUN 7 (6-20) mg/dL Creatinine 0.5 (0.4-1.0) mg/dL Estimated GFR (MDRD) 121 (>89) Glucose 157 H (70-100) mg/dL Calcium 9.1 (8.5-10.3) mg/dL ABX Reporting Has patient been on IV antibiotics over the past 48 hours?: No Sepsis Event Note (H) - Evaluation Current Stage of Sepsis: Ruled out Assessment/Plan - Problem List (1) Generalized weakness Impression: By her description this generalized weakness and tremulousness was abrupt in onset. She is still unstable but her tremors have subsided. Yesterday evening she was trying to get up out of her bed, ripped out multiple IVs and was very disruptive. I increased her Librium to 25mg q6hr so she doesn't have so much agitation. Continues to be hypertensive in the 150s. Since the metoprolol has been started pulse has been in the 80s. No fever. She ate her breakfast today. Plan: Continue librium She is still not quite ready for discharge due to her confusion. She is ataxic but follows prompts quite nicely. Hyponatremia is improving with IV fluids. She still is hypokalemic and I will supplement that. (2) Hyponatremia and hypokalemia Conclusion/Plan: Most likely due to hypovolemic status from alcohol and decreased p.o. intake. Some response with improving sodium. Not quite normal yet. Potassium still needs supplement, it has improved slightly but still not within normal limits. She keeps pulling her IV out so she is taking liquids PO. 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 Plan: I expect she will need an outpatient eval. (4) Alcohol abuse Conclusion/Plan: Her tremulousness is improving but she is still very confused. This morning when I spoke with her she told me she is at home in bed. Other times she thinks she might be at the hospital in [place]. She has received one intravenous banana bag. I increased her Librium to 25 mg 3 times a day on the evening of 06/13 because she became very agitated and disruptive, she kept getting out of her bed and ripping out her IVs. She continues to be hypertensive, but not tachycardic and tremulousnous has improved. But she is confused.On p.o. thiamine, folate, vitamin today. 06/12 I had a larger conversation about her overall status living alone, alcohol abuse, probable depression. She is going to be designating her best friend Crystal is power of county attorney. I encouraged her to make sure she makes contact with an county attorney to get DURABLE POWER OF MESH CUTTER and power of county attorney in place. I would hate for this patient to be admitted with no one to be able to speak for her in case she was unconscious and could not verbalize her own wishes. At this time the patient states that she has relatively stable social support system. She likes [place] has en ough gris from them that she would like to be live a little bit longer. Full code Plan: Continue librium to 25 mg po tid. continue po vitamins. (5) Atrial fibrillation Conclusion/Plan: Longstanding duration according to one of the ER records. But she says she is never really seen a physician for this. Never gotten chronic medication for. Nor she had a work-up for it. Today preliminary report of echocardiogram has normal LVEF at 55 to 60% with impaired relaxation consistent with grade 1 diastolic dysfunction. No regional wall motion abnormalities. Left atrial volume index is normal. Right atrial volume index is normal. Mild mitral regurgitation. Trace tricuspid regurgitation. No aortic stenosis. She is on metoprolol 25 mg po bid and rate is controlled. Plan: Next step would be anticoagulation [id number] score is 3 points which is 3.2 %/year stroke risk and 90,000 patients. And a 4% risk of embolism. At 3 points, she is an anticoagulation candidate. At this time, I hesitate to start her on anticoagulation because I do not know if she is willing to stop drinking. I will wait for her to regain her baseline sensorium before I would consider starting her on Eliquis or Xarelto. Qualifiers: Atrial fibrillation type: unspecified Qualified Code(s): I48.91 - Unspecified atrial fibrillation (6) Hypertension Conclusion/Plan: This has been present in her previous ER visits. But she is an alcohol abuser so I do not know if her high blood pressure is due to alcohol abuse or to essential hypertension. I started her on a beta-jim for her atrial fibrillation rate controlled. If she is able to stop drinking and have control of her heart rate with metoprolol, she may not need any more medication other than the metoprolol. Plan - continue Metoprolol 25mg BID. Qualifiers: Hypertension type: primary hypertension Qualified Code(s): I10 - Essential (primary) hypertension
[2022-06-15] MEDS: chlordiazePOXIDE 25 MG CAPSULE PO SCH ×2 (05:27→12:59)
[2022-06-15 05:36] LABS: BASOPHILS % (AUTO) 0.3 %; EOSINOPHILS # (AUTO) 0.2 10^3/uL (0.0-0.7); EOSINOPHILS % (AUTO) 3.6 %; HCT - HEMATOCRIT 37.4 % (37.0-47.0); HGB - HEMOGLOBIN 12.5 g/dL (12.0-16.0); LYMPHOCYTES # (AUTO) 2.1 10^3/uL (1.5-3.5); LYMPHOCYTES % (AUTO) 34.1 %; MEAN CORPUSCULAR HEMOGLOBIN 35.6 pg (27.0-31.0); MEAN CORPUSCULAR HGB CONC 33.4 g/dL (32.0-36.0); MEAN CORPUSCULAR VOLUME 106.6 fL (81.0-99.0); MEAN PLATELET VOLUME 9.9 fL (7.9-10.8); MONOCYTES # (AUTO) 0.7 10^3/uL (0.0-1.0); MONOCYTES % (AUTO) 10.7 %; NEUTROPHILS # (AUTO) 3.1 10^3/uL (1.5-6.6); PLT - PLATELET COUNT 146 10^3/uL (130-450); RED BLOOD COUNT 3.51 10^6/uL (4.20-5.40); RED CELL DISTRIBUTION WIDTH 14.3 % (12.0-15.0); WHITE BLOOD COUNT 6.1 x10^3/uL (4.8-10.8)
[2022-06-15 05:44] LABS: CALCIUM 9.2 mg/dL (8.5-10.3); CREATININE 0.5 mg/dL (0.4-1.0); POTASSIUM 3.8 mmol/L (3.5-5.0)
[2022-06-15] MEDS: METOPROLOL TARTRATE 25 MG TABLET PO SCH ×2 (08:42→21:21)
[2022-06-15] MEDS: PRENATAL VITAMIN TABLET PO SCH (08:42)
[2022-06-15] MEDS: THIAMINE 100 MG TABLET PO SCH (08:43)
[2022-06-15] MEDS: FOLIC ACID 1 MG TABLET PO SCH (08:43)
--- NOTE | 2022-06-15 16:51 | PROVIDER PROGRESS NOTE ---
Progress Note June 15, 2022 4:45 PM I really thought that this lady would be out of the hospital within 24 hours when I first admitted her. She was slightly tremulous, slightly tachycardic and slightly hypertensive. But alert, oriented, and her last alcohol use was probably the day before admission. But she is already cut back significantly. She received a banana bag and has been on oral vitamin supplementations since the second day. I had to change her from observation status to inpatient status because of confusion. She has not been belligerent, but very impulsive. IV has been taken off at least 3 times so I have stopped the IVF and IV. I increased her Librium from 5 mg to 10 mg to then 25 mg to control her delirium and disorientation. Vitals continue to show she is afebrile. Blood pressure stable. Heart rate has been stable since the where the highest rate she was was 96. Sleepy today. Yesterday she was still up and about in spite of Librium. Today she is much more sedated. Neck is supple Lungs are clear to auscultation and percussion Regular rate and rhythm Abdomen is soft and nontender. Normal bowel sounds. She is eating 75% of her food and is feeding herself with needing only occasional prompting. Last bowel movement was today. Neurologically she is confused. She is oriented to person and time. Forgets wh y she is here. She needs a standby assist to get up to go to the bathroom, ambulate in her room. No tremors, no sweats. Chemistry today with a sodium of 134 and stable. Random glucose 112. The rest of it is normal. White cell count 6.1. Hemoglobin 12.5. Assessment/plan 1. Generalized weakness due to mild alcohol withdrawal Metoprolol was started for tachycardia and that is well controlled. Blood pressure stable. No tremors, no diaphoresis. Sedated on Librium 25 3 times daily. Plan: Stop Librium. See how she does. Its now been 4 days. Hopefully tomorrow morning or later this evening she will be much more alert. And I can plan for discharge tomorrow 2. Hyponatremia and hypokalemia. Most likely from hypovolemic status and decreased p.o. intake. Sodium is stayed stable. Potassium is required multiple doses of supplementation but is stable today. Continue to monitor. 3. Ataxic gait. Able to get up with nursing with standby assist. No PT eval. Most likely due to chronic alcohol abuse. I would recommend outpatient physical therapy to help her with that. 4. Alcohol abuse. Status post banana bag, now on oral thiamine, and will be stopped on a Librium today for mild alcohol withdrawal 5. Chronic atrial fibrillation. Echocardiogram during his stay shows left atrial volume index that is normal. She should be anticoagulated with a [id number] or that is 3 points. However because of her alcohol and ataxic gait I have not anticoagulated her. Hopefully she can get through this episode, continue to stop drinking, and then restarted on Eliquis or Xarelto depending on what her PCP says. 7. Hypertension. Present on numerous ER visits in the past. Home medication is metoprolol prescribed by Dr. De right before discharge from the ED this admission. She is not on metoprolol at home usually. Plan is to send her home on metoprolol and have her follow-up with her primary care provider to see if it needs to be continued.
[2022-06-16] MEDS: METOPROLOL TARTRATE 25 MG TABLET PO SCH ×2 (08:31→21:37)
[2022-06-16] MEDS: PRENATAL VITAMIN TABLET PO SCH (08:32)
[2022-06-16] MEDS: FOLIC ACID 1 MG TABLET PO SCH (08:32)
[2022-06-16] MEDS: THIAMINE 100 MG TABLET PO SCH (08:32)
--- NOTE | 2022-06-16 11:57 | PROVIDER PROGRESS NOTE ---
Progress Note June 16, 2022 11:50 AM Very sleepy this morning. But able to wake up with the sound of my voice. Saw her again at lunchtime when she is up eating a accounting coordinator salad. Cheerful, oriented to person and that is about it. Cooperative. She knows that she is not at home but she just does not know exactly where she is and she waiting to get better to go home. Active Medications Acetaminophen (Acetaminophen 325 Mg Tablet) 650 mg PO Q4HR PRN PRN Reason: Pain 1 to 4, or Fever Folic Acid (Folic Acid 1 Mg Tablet) 1 mg PO DAILY [facility] Last Admin: 06/16/22 08:32 Dose: 1 mg Metoprolol Tartrate (Metoprolol Tartrate 25 Mg Tablet) 25 mg PO BID [facility] Last Admin: 06/16/22 08:31 Dose: 25 mg Ondansetron HCl (Ondansetron Odt 4 Mg Tablet) 4 mg TL Q6HR PRN PRN Reason: Nausea / Vomiting Ondansetron HCl (Ondansetron 4 Mg/2 Ml Vial) 4 mg IVP Q6HR PRN PRN Reason: Nausea / Vomiting Oxycodone HCl (Oxycodone 5 Mg Tablet) 5 mg PO Q4HR PRN PRN Reason: Pain 5 to 7 Multivit/Folic Acid/Iron ( Vitamin Tablet) 1 tab PO DAILYWM [facility] Last Admin: 06/16/22 08:32 Dose: 1 tab Thiamine HCl (Thiamine 100 Mg Tablet) 100 mg PO DAILY [facility] Last Admin: 06/16/22 08:32 Dose: 100 mg Aspirin [[place] Aspirin] 81 mg PO DAILY 06/30/21 Cholecalciferol [Vitamin D3] 25 mcg PO DAILY 06/12/22 Melatonin 1 tab PO QPM 06/12/22 Multivitamin 1 tab PO DAILY 06/12/22 Tetrahydrozoline HCl [Visine] 1 drops EACHEYE DAILY PRN 06/12/22 Exam Temperature is 36.3. Heart rate 76. Blood pressure 145/55. Respirations 18. 98% on room air Alert lady, watching TV, eating her lunch but with psychomotor slowing. Motions are deliberate and careful. Neck is supple Lungs are clear without tachypnea Regular rate and rhythm without tachycardia or murmur Abdomen is soft, nontender, normal bowel sounds. Last bowel movement was yesterday. Extremities are without edema, and she is able to sit up, and with a standby assist ambulate very carefully to the chair. She is easily confused. She is not ataxic. Last labs were June 15 and they were stable. MCV is 106.6 Assessment/plan 1. Generalized weakness due to mild alcohol withdrawal. She has improved overall. Strength is improved and she can be ambulatory. She is feeding herself. However her confusion is not resolved. As such she is staying here until her sensorium clears and she can be a safe discharge. Her baseline is an independent lady who drives a car, pays her own bills, and is alert and oriented without use of durable medical equipment. 2. Hyponatremia and hypokalemia. From hypovolemic status and decreased p.o. intake before admission. She required supplement. Pulled out her IVs and I have not resumed them. 3. Ataxic gait Most likely due to chronic alcohol abuse. I am recommending outpatient PT 4. Alcohol abuse. Status post banana bag on her first day. Now on oral thiami ne, folate. Librium stopped June 15. 5. Chronic atrial fibrillation. Echocardiogram with normal left atrial volume index as well as normal left ventricular ejection fraction. She should be anticoagulated but because of her ataxia and alcohol abuse she may be at higher risk for bleeding than stroke. I will leave it up to her primary care provider in the outpatient setting to decide when to start her on anticoagulation if at all. 6. Hypertension. Seen in many ER visits. Here she is 1 24-1 45 systolic during the day. When she was evaluated in the emergency room with this admission, they thought they were going to send her home. Her alcohol withdrawal did not seem better and it was her gait ataxia that brought her in. With that discharge Dr. De did order metoprolol to 50 mg p.o. twice daily. I started her on metoprolol 25 mg p.o. twice daily due to tachycardia. Pulse is in the 60s and 70s with this. At discharge I will send her home on metoprolol 25 mg p.o. twice daily and have her medications adjusted by her primary care provider
[2022-06-17] MEDS: PRENATAL VITAMIN TABLET PO SCH (09:08)
[2022-06-17] MEDS: METOPROLOL TARTRATE 25 MG TABLET PO SCH (09:08)
[2022-06-17] MEDS: FOLIC ACID 1 MG TABLET PO SCH (09:09)
[2022-06-17] MEDS: THIAMINE 100 MG TABLET PO SCH (09:09)
--- NOTE | 2022-06-17 09:15 | Discharge Plan ---
Discharge Plan Problem Reviewed?: Yes Disposition: Home, Self Care Condition: Fair Prescriptions: Metoprolol Tartrate [Lopressor] 50 mg PO BID #20 tablet Diet: Regular Activity Restrictions: Activity as Tolerated Shower Restrictions: No Driving Restrictions: Yes (take it easy on driving for a few days) Health Concerns: You came to the hospital because you were having tremors and shakes of your hand. You were started to feel really weak. You could not eat. You are an alcoholic and stopped drinking michelle about 6 months ago and you were currently drinking 3 beers, 3 times a week. Your last drink was the day before you came in. In the emergency room we found you to have a fast heart rate, high blood pressure, tremors, and low potassium with low sodium. We think you were going through alcohol withdrawal. We treated you with medications that calm down your nerves as you go through withdrawal. And we gave you a new blood pressure pill called metoprolol. It took you a few days to finally become oriented again. Not have any shakes. And your potassium and salts are normal. Plan of Treatment: 1. Because of alcoholism, your body needs a lot of B vitamins. So please take a vitamin. A vitamin has lots of the B vitamins you need and also see if you can take an extra thiamine and vitamin as well. 2. Please see your doctor in follow-up in the next 1 to 2 weeks. If you do not have a doctor please find yourself a doctor to establish yourself with in case of emergency. 3. Please do not drink anymore. Not even 1 beer. It seems like your body is really not doing well with alcohol these days and it should be a warning sign that it is time for you to stop completely. Care Goals: To remain independently at home for as long as possible without alcohol abuse. Assessment: Today the patient is alert, oriented, knows why she came into the hospital. She gives me a pinky swear that she is not going to drink again. Additional Instructions or Follow Up instructions: No Smoking: If you smoke, Please STOP! Call for help.
[2022-06-17 11:15] VITALS: BP 120/70
--- NOTE | 2022-06-17 17:57 | DISCHARGE SUMMARY ---
Discharge Summary Admit Date: 06/12/22 Discharge Date: 06/17/22 Discharging Provider: Morena Burroughs MD Primary Care Provider: no PCP Code Status: Attempt Resuscitation Condition at Discharge: Fair Discharge Disposition: 01 Home, Self Care - DIAGNOSES Discharge Diagnoses with Status of Each Condition: 1. Alcohol Dependence with withdrawal 2. Generalized weakness 3. Hyponatremia 4. Hypokalemia 5. Ataxic gait 6. Chronic atrial fibrillation 7. Hypertension - HPI History of Present Illness: 76-year-old female who lives alone in her own home and called EMS in the silk screener hours of today because she started shaking around 6:00 last night. And she has not been able to stop being tremulous. She feels weak, and her legs just will not support her. She denies fever, chills. She denies sore throat, r unny nose. She does not feel as if her stomach is affected. No nausea, vomiting. She has no urgency, frequency. Very rarely will she be incontinent of urine. She used to drink 1/5 of michelle a day and started feeling "poorly" with that. She has been doing it for many decades. While she has had many episodes of intoxication and falls, she does not really remember going through withdrawal. She is never had blackouts, she is never had seizures, and she does not really remember being tremulous. Shecut back and has been drinking 3 beers, 3 times a week. She last drank June 11 when she had lunch with a friend. This shake started that night at 6 PM. Again negative review of systems with this. She then called the ambulance at approximately 2 in the morning today and the ambulance brought her to the ED. Temperature is 36.3. Heart rate 132. Blood pressure 141/66. Respirations 26. She is 100% on room air. She is 5 feet 5 inches tall and weighs [address] De found to be tremulous, but alert, oriented. She remained slightly hypertensive and tachycardic during her stay and he gave her a liter of fluids. Her labs showed sodium of 125, potassium 3.4, carbon dioxide 16. Anion gap 21. BUN and gait creatinine were normal. Total bili is 2.9, AST 46. TSH 4.17. White cell count was normal. Hemoglobin 13.2. Platelets 203. Alcohol level was less than 5. Viral PCR panel was negative. Chest x-ray had no acute cardiopulmonary abnormalities or focal airspace disease. He was getting ready to send her home because she really did not need treatment other than the liter of fluid. Vital signs appeared stable. However when he tried to get her up and get her to walk, she was very unsteady on her feet, very shaky. She was not safe to return to home today. After the case was discussed, he Asked that she is asked for observation status to see if hydration, a banana bag, and evaluation with PT will help identify what she can do to stay safe at home. 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 - HOSPITAL COURSE Hospital Course: She was placed in observation status and received a banana bag, and then changed to oral thiamine, folate, and vitamins. She had very slight tremors and was a delightful personality and was alert and oriented. She was changed to inpatient status because she was ataxic and not felt safe to ambulate at home or to drive. Over the next 2 days she actually became increasingly more impulsive, disoriented, we felt that she was going through mild alcohol withdrawal. On the day of discharge she was finally oriented to place, time, why she was here. I strongly, strongly encouraged her to never drink again. She received physical therapy while here, and was encouraged to walk in the hallways. She was still slightly off balance at discharge but stable enough to go home. Hyponatremia and hypokalemia had improved. Sodium was 134 at discharge and potassium is now normal. She has chronic atrial fibrillation and should be anticoagulated. But this woman is a fall risk, abuses alcohol, and I am not quite sure that she should be on an anticoagulant at this time. She should address that with a primary care provider if she stays sober. She needs to establish yourself with a primary care provider. A list of primary care providers was provided to her by [employer]. At discharge temperature was 36.7. Heart rate 99. Blood pressure 120/70. Respirations 16. 99% on room air. She is a delightful personality. Oriented to person place and time. No tremors. Romberg was negative but she does sway. She is 69.5 kg. Neck is supple. Lungs are clear. Regular rate and rhythm without tachycardia. No diaphoresis, no tremors, no tremulousness. Abdomen was soft and nontender. Greater than 30 minutes was spent coordinating discharge - ALLERGIES Allergies/Adverse Reactions: Allergies Allergy/AdvReac Type Severity Reaction Status Date / Time No Known Drug Allergies Allergy Verified 06/30/21 11:40 - MEDICATIONS Home Medications: Ambulatory Orders Medication Instructions Recorded Confirmed Aspirin [[place] Aspirin] 81 mg PO DAILY 06/30/21 06/12/22 Cholecalciferol [Vitamin D3] 25 mcg PO DAILY 06/12/22 06/12/22 Melatonin 1 tab PO QPM 06/12/22 06/12/22 Metoprolol Tartrate [Lopressor] 50 mg PO BID #20 tablet 06/12/22 Multivitamin 1 tab PO DAILY 06/12/22 06/12/22 Tetrahydrozoline HCl [Visine] 1 drops EACHEYE DAILY PRN 06/12/22 06/12/22 Thiamine [Vitamin B-1] 100 mg PO DAILY tab 06/17/22 - LABS Result Diagrams: 06/15/22 05:29 06/15/22 05:29 - SEPSIS Current Stage of Sepsis: Ruled out
== END 2022-06-17 11:17 | disposition home or self-care (01) | DRG 897 ==
LOC: EDBD → EDUNIT# → ED 02:37 → MS2 08:59 → INTOOBSV 10:47 → OBSVTOIN 10:47
PROVIDERS: ADMIT Specialist; ATTEND Specialist
DX: F10.139 Alcohol abuse with withdrawal, unspecified (principal); F10.239 Alcohol dependence with withdrawal, unspecified; E87.0 Hyperosmolality and hypernatremia; I48.20 Chronic atrial fibrillation, unspecified; I48.91 Unspecified atrial fibrillation; R53.1 Weakness; Z20.822 Contact with and (suspected) exposure to COVID-19; Y90.0 Blood alcohol level of less than 20 mg/100 ml; E87.6 Hypokalemia; R26.0 Ataxic gait; I10 Essential (primary) hypertension; H54.7 Unspecified visual loss; H52.4 Presbyopia; R00.0 Tachycardia, unspecified
CPT/HCPCS: 36415; 71045; 80048; 80053; 83690; 84443; 85025; 85610; 87633; 93005; 93306; 96361; 96365; 96366; 96375; 96376; 99284; 99285; A9270; G0480; J2060; J3411; 80320

== ENCOUNTER 2022-06-18 22:57 | Outpatient (CLI) | payer MEDICARE, OTHER | END 2022-06-18 23:59 | disposition critical access hospital (66) | LOC: EMS 22:57 | DX: R55 Syncope and collapse (principal); R42 Dizziness and giddiness; Z72.89 Other problems related to lifestyle | CPT/HCPCS: A0425; A0429 ==

== ENCOUNTER 2022-06-18 23:22 | Emergency (ER) | payer MEDICARE, OTHER ==
--- NOTE | 2022-06-18 23:33 | ED Physician Documentation ---
History of Present Illness - Stated complaint Stated Complaint: SYNCOPE, GLF - Chief complaint Chief Complaint: Neuro - History obtained from History obtained from: Patient - History of Present Illness Timing: Today Pain level now: 0 Improved by: no ameliorating factors Worsened by: unsteadiness worse with standing, ambulating - Additonal information Additional information: LACIE after falling down at home. 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 She thinks she lost her balance, not clear why she fell. Denies LOC, denies WHITE, denies neck pain. She does c/o nasal bridge pain. Patient was admitted to [facility] 06/13/22 for tremulousness, discharged 06/17 (yesterday). I was the ED physician on duty that admitted her to the hospital and there was a suspicion of alcoholism with withdrawal, and the notes from her inpatient stay seem to have similar suspicion. Hospitalist's d/c instructions to patient included that patient was strongly advised to stop drinking completely. On tonight's HPI, patient admits to having some alcohol tonight and earlier today. 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 () : Incontinence (rarely) HEENT: Chronic vision loss (with presbyopia) Psych: None Musculoskeletal: None Derm: None - Past Surgical History Past Surgical History: Yes General: Cholecystectomy - Present Medications Home Medications: Ambulatory Orders Medication Instructions Recorded Confirmed Aspirin [[place] Aspirin] 81 mg PO DAILY 06/30/21 06/12/22 Cholecalciferol [Vitamin D3] 25 mcg PO DAILY 06/12/22 06/12/22 Melatonin 1 tab PO QPM 06/12/22 06/12/22 Metoprolol Tartrate [Lopressor] 50 mg PO BID #20 tablet 06/12/22 Multivitamin 1 tab PO DAILY 06/12/22 06/12/22 Tetrahydrozoline HCl [Visine] 1 drops EACHEYE DAILY PRN 06/12/22 06/12/22 Thiamine [Vitamin B-1] 100 mg PO DAILY tab 06/17/22 - Allergies Allergies/Adverse Reactions: Allergies Allergy/AdvReac Type Severity Reaction Status Date / Time No Known Drug Allergies Allergy Verified 06/30/21 11:40 - Social History Does the pt smoke?: No Smoking Status: Never smoker Does the pt drink ETOH?: Yes Does the pt have substance abuse?: No - Immunizations Immunizations are current?: No - POLST Patient has POLST: No POLST Status: Full Code PD ED PE NORMAL - Vitals Vital signs reviewed: Yes - General General: Alert and oriented X 3, No acute distress, Well developed/nourished - HEENT HEENT: Atraumatic, PERRL, EOMI, Moist mucous membranes - Neck Neck: Supple, no meningeal sign, No bony TTP - Cardiac Cardiac: RRR, No murmur - Respiratory Respiratory: No respiratory distress, Clear bilaterally - Abdomen Abdomen: Soft, Non tender - Back Back: No spinal TTP - Extremities Extremities: No deformity, No tenderness to palpate, Normal ROM s pain, No edema - Neuro Neuro: Alert and oriented X 3, 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, No motor deficit, No sensory deficit, Normal speech Eye Opening: Spontaneous Motor: Obeys Commands Verbal: Oriented GCS Score: 15 Results - Vitals Vitals: Oxygen O2 Source Room air - Labs Labs: Laboratory Tests 06/18/22 06/18/22 06/18/22 23:54 23:54 23:54 WBC 6.4 RBC 3.57 L Hgb 12.5 Hct 37.6 MCV 105.3 H MCH 35.0 H MCHC 33.2 RDW 14.0 Plt Count 265 MPV 9.5 Neut # (Auto) 2.8 Lymph # (Auto) 2.2 [place] # (Auto) 1.0 Eos # (Auto) 0.2 Baso # (Auto) 0.0 Absolute Nucleated RBC 0.00 Nucleated RBC % 0.0 PT 10.0 INR 0.9 Sodium 137 Potassium 3.5 Chloride 100 L Carbon Dioxide 26 Anion Gap 11.0 BUN 8 Creatinine 0.5 Estimated GFR (MDRD) 121 Glucose 117 H Calcium 8.8 Total Bilirubin 0.5 AST 34 ALT 34 Alkaline Phosphatase 47 Total Protein 6.8 Albumin 3.2 Globulin 3.6 Albumin/Globulin Ratio 0.9 L Lipase 46 Ethyl Alcohol 133.2 PD MEDICAL DECISION MAKING - ED course Complexity details: reviewed old records, reviewed results, re-evaluated patient, considered differential, d/w patient ED course: BIBA after falling at home. Admits to drinking alcohol earlier tonight, serum ethanol level 0.133. She has mild nasal bridge swelling, tenderness; no other c/o nor concerning finding on exam. Unremarkable CBC, ER abdominal panel. Results d/w patient and she is comfortable with d/c home. I advised her to abstain from alcohol, pointing out that intoxication could have caused or, at least, contributed to her fall tonight, and that regular/heavy alcohol consumption can cause a variety of health problems including liver failure/cirrhosis, gastritis/ulcers, and is a risk factor for several types of cancers. Departure - Departure Disposition: Home, Self Care Clinical Impression: Fall Qualifiers: Encounter type: initial encounter Qualified Code(s): W19.XXXA - Unspecified fall, initial encounter Condition: Good Instructions: ED Fall Uncertain Cause Follow-Up: Danika Amaya ARNP [Credentialed Staff Provider] - Comments: There were no concerning findings on tonight's blood tests. Your alcohol level was high, though; this can contribute to (or even cause) falling/loss of balance. There are numerous long-term consequences of regular alcohol use, as well. Please follow up with your primary care provider. If you do not have a PCP, contact your insurance provider to ask about options for establishing with a local practitioner. If you do not have insurance, you can use the contact information elsewhere on these discharge sheets for one of the local clinics. Discharge Date/Time: 06/19/22 03:30
[2022-06-18] MEDS ORDERED: THIAMINE INJ 100 MG, MAGNESIUM SULFATE 2 GM, MULTIVITAMIN 10 ML, FOLIC ACID INJ 1 MG in... IV ONE ×5 (23:34)
[2022-06-18] MEDS ORDERED: MAGNESIUM SULFATE 1 GM/2 ML VIAL ONE (23:39)
[2022-06-18] MEDS ORDERED: FOLIC ACID 5 MG/1 ML 10ML MDV ONE (23:39)
[2022-06-18] MEDS ORDERED: THIAMINE 100 MG/1 ML 2 ML MDV ONE (23:39)
[2022-06-18] MEDS ORDERED: MULTIVITAMIN IV 10 ML VIAL ONE (23:39)
[2022-06-19 00:04] LABS: BASOPHILS % (AUTO) 0.6 %; EOSINOPHILS # (AUTO) 0.2 10^3/uL (0.0-0.7); EOSINOPHILS % (AUTO) 3.3 %; HCT - HEMATOCRIT 37.6 % (37.0-47.0); HGB - HEMOGLOBIN 12.5 g/dL (12.0-16.0); LYMPHOCYTES # (AUTO) 2.2 10^3/uL (1.5-3.5); LYMPHOCYTES % (AUTO) 35.1 %; MEAN CORPUSCULAR HGB CONC 33.2 g/dL (32.0-36.0); MEAN CORPUSCULAR VOLUME 105.3 fL (81.0-99.0); MEAN PLATELET VOLUME 9.5 fL (7.9-10.8); NEUTROPHILS # (AUTO) 2.8 10^3/uL (1.5-6.6); NEUTROPHILS % (AUTO) 44.7 %; PLT - PLATELET COUNT 265 10^3/uL (130-450); RED BLOOD COUNT 3.57 10^6/uL (4.20-5.40); WHITE BLOOD COUNT 6.4 x10^3/uL (4.8-10.8)
[2022-06-19 00:13] LABS: ALBUMIN 3.2 g/dL (3.2-5.5); ALBUMIN/GLOBULIN RATIO 0.9 (1.0-2.2); BILIRUBIN,TOTAL 0.5 mg/dL (0.2-1.0); CALCIUM 8.8 mg/dL (8.5-10.3); CREATININE 0.5 mg/dL (0.4-1.0); ETOH - ETHANOL 133.2 mg/dL; POTASSIUM 3.5 mmol/L (3.5-5.0); TOTAL PROTEIN 6.8 g/dL (6.7-8.2)
[2022-06-19 00:15] LABS: INR 0.9 (0.8-1.2)
[2022-06-19 03:04] VITALS: BP 137/75
== END 2022-06-19 03:30 | disposition home or self-care (01) ==
LOC: EDUNIT# → ED 23:22
DX: Z04.3 Encounter for examination and observation following other accident (principal)
CPT/HCPCS: 36415; 80053; 83690; 85025; 85610; 96365; 99282; 99284; G0480; J3411; 80320

== ENCOUNTER 2023-07-04 21:58 | Outpatient (CLI) | payer MEDICARE, OTHER | END 2023-07-04 21:59 | disposition critical access hospital (66) | LOC: EMS 21:58 | DX: F10.129 Alcohol abuse with intoxication, unspecified (principal); S00.81XA Abrasion of other part of head, initial encounter; W19.XXXA Unspecified fall, initial encounter; Y92.009 Unspecified place in unspecified non-institutional (private) residence as the place of occurrence of the external cause; M25.539 Pain in unspecified wrist; R29.6 Repeated falls; R62.7 Adult failure to thrive; R03.0 Elevated blood-pressure reading, without diagnosis of hypertension | CPT/HCPCS: A0425; A0429 ==

== ENCOUNTER 2023-07-04 22:24 | Emergency (ER) | payer MEDICARE, OTHER ==
--- NOTE | 2023-07-04 22:51 | ED Physician Documentation ---
History of Present Illness - Stated complaint Stated Complaint: FALLS, ETOH, FAILURE TO THRIVE, HAND PAIN - History obtained from History obtained from: Patient, EMS - Additonal information Additional information: 77yF presents to the ED with acute alcohol intoxication, multiple falls over past couple days with possible head trauma. patient called ems initially for thumb and wrist pain. on arrival they determined no injury to the extremity but did note she was intoxicated and unable to walk reliably. also with L forehead abrasion without explanation. her home was "in disarray" with empty bottles of alcohol strewn about. 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 HEENT: Chronic vision loss (with presbyopia) Psych: None Musculoskeletal: None Derm: None - Past Surgical History Past Surgical History: Yes General: Cholecystectomy - Present Medications Home Medications: Ambulatory Orders Medication Instructions Recorded Confirmed Melatonin 1 tab PO QPM 06/12/22 04/12/23 Acetaminophen [Tylenol] 650 mg PO Q4HR PRN tab 04/14/23 Aspirin [[place] Aspirin] 81 mg PO DAILY #0 04/14/23 04/12/23 Cholecalciferol [Vitamin D3] 25 mcg PO DAILY #0 04/14/23 04/12/23 Folic Acid 1 mg PO DAILY #1 tablet 04/14/23 Metoprolol Succinate [Toprol Xl] 25 mg PO DAILY #0 04/14/23 04/12/23 Thiamine [Vitamin B-1] 100 mg PO DAILY tab 04/14/23 - Allergies Allergies/Adverse Reactions: Allergies Allergy/AdvReac Type Severity Reaction Status Date / Time No Known Drug Allergies Allergy Verified 04/10/23 19:14 - Social History Does the pt smoke?: No Smoking Status: Unknown if ever smoked Does the pt drink ETOH?: Yes Does the pt have substance abuse?: No - Immunizations Immunizations are current?: No - POLST Patient has POLST: No POLST Status: Full Code PD ED PE NORMAL - Vitals Vital signs reviewed: Yes - General General: Alert and oriented X 3, No acute distress, Well developed/nourished, Other (clinically intoxicated) - HEENT HEENT: Atraumatic, PERRL, EOMI - Neck Neck: No bony TTP, Other (c- collar in place. unable to clear c spine 2/2 intoxication) - Cardiac Cardiac: RRR - Respiratory Respiratory: No respiratory distress, Clear bilaterally - Abdomen Abdomen: Non tender, Non distended - Back Back: No spinal TTP - Derm Derm: Normal color, Warm and dry - Extremities Extremities: No deformity, Normal ROM s pain - Neuro Neuro: Alert and oriented X 3 - Psych Psych: Other (clinically intoxicated) Results - Vitals Vitals: Vital Signs - 24 hr 07/04/23 07/05/23 22:35 02:29 Temperature 36.6 C Heart Rate 105 H 105 H Respiratory 15 20 Rate Blood Pressure 160/120 H 111/55 L O2 Saturation 94 100 Oxygen O2 Source Room air - Labs Labs: Laboratory Tests 07/04/23 07/04/23 07/05/23 22:56 22:56 02:30 WBC 6.2 RBC 4.33 Hgb 14.4 Hct 42.5 MCV 98.2 MCH 33.3 H MCHC 33.9 RDW 14.7 Plt Count 251 MPV 8.6 Neut # (Auto) 2.3 Lymph # (Auto) 3.2 [place] # (Auto) 0.5 Eos # (Auto) 0.1 Baso # (Auto) 0.1 Absolute Nucleated RBC 0.00 Nucleated RBC % 0.0 Sodium 133 L Potassium 3.4 L Chloride 95 L Carbon Dioxide 24 Anion Gap 14.0 H BUN 5 L Creatinine 0.5 L Estimated GFR (MDRD) 120 Glucose 94 Calcium 9.5 Total Bilirubin 0.5 AST 26 ALT 12 Alkaline Phosphatase 53 Total Protein 7.3 Albumin 4.0 Globulin 3.3 Albumin/Globulin Ratio 1.2 Lipase 35 Urine Color COLORLESS Urine Clarity CLEAR Urine pH 7.0 Ur Specific [place] <=1.005 Urine Protein NEGATIVE Urine Glucose (UA) NEGATIVE Urine Ketones NEGATIVE Urine Occult Blood NEGATIVE Urine Nitrite NEGATIVE Urine Bilirubin NEGATIVE Urine Urobilinogen 0.2 (NORMAL) Ur Leukocyte Esterase NEGATIVE Ur Microscopic Review NOT INDICATED Urine Culture Comments NOT INDICATED Urine Opiates Screen NEGATIVE Ur Buprenorphine Scrn NEGATIVE Ur Oxycodone Screen NEGATIVE Urine Methadone Screen NEGATIVE Ur Barbiturates Screen NEGATIVE Ur Tricyclics Screen NEGATIVE Ur Phencyclidine Scrn NEGATIVE Ur Amphetamine Screen NEGATIVE U Methamphetamines Scrn NEGATIVE U Benzodiazepines Scrn NEGATIVE Urine Cocaine Screen NEGATIVE U Cannabinoids Screen NEGATIVE Ur Drug Screen Comment CUTOFF CONC BELOW: Ethyl Alcohol 395.4 PD Medical Decision Making - ED course ED course: 77yF presents to the ED with clinical intoxication and abrasion L forehead with report of possible fall with HT. traumatic workup undertaken with head ct, c spine (c collar in place on arrival), as well as cxr, pelvis xr and labs. will f/u results. Labwork noncontributory. Her albumin is actually normal, suggesting adequate nutrition. Imaging unremarkable. patient ambulatory without difficulty, clinically sober. discussed option of her staying for social work but she would like to get home. return precautions given and encouraged her to follow up with a pcp. referral provided. also recommended to return to the ED if she needs help with alcohol cessation. Departure - Departure Disposition: Home, Self Care Clinical Impression: Alcohol abuse, Fall, Abrasion of forehead Condition: Stable Instructions: Addiction Alcohol Comments: You were seen in the emergency department for alcohol intoxication and for a fall. Your imaging uncovered no emergent conditions. It can be dangerous to quit drinking suddenly, so you should reach out to a physician or medical professional for help with alcohol cessation. Please follow-up with your primary care provider and return to the emergency department if you have any new or worsening symptoms or other concerns. Forms: PCP List
[2023-07-04] MEDS ORDERED: THIAMINE INJ 100 MG, FOLIC ACID INJ 1 MG in SODIUM CHLORIDE 0.9% 1,000 ML IV STA (22:53)
[2023-07-04] MEDS ORDERED: TETANUS/DIPHTHERIA/PERTUSSIS 0.5 ML SYRINGE IM ONE (22:56)
[2023-07-04 23:28] LABS: BASOPHILS # (AUTO) 0.1 10^3/uL (0.0-0.1); BASOPHILS % (AUTO) 0.8 %; EOSINOPHILS # (AUTO) 0.1 10^3/uL (0.0-0.7); EOSINOPHILS % (AUTO) 1.5 %; HCT - HEMATOCRIT 42.5 % (37.0-47.0); HGB - HEMOGLOBIN 14.4 g/dL (12.0-16.0); LYMPHOCYTES # (AUTO) 3.2 10^3/uL (1.5-3.5); LYMPHOCYTES % (AUTO) 52.3 %; MEAN CORPUSCULAR HEMOGLOBIN 33.3 pg (27.0-31.0); MEAN CORPUSCULAR HGB CONC 33.9 g/dL (32.0-36.0); MEAN CORPUSCULAR VOLUME 98.2 fL (81.0-99.0); MEAN PLATELET VOLUME 8.6 fL (7.9-10.8); MONOCYTES # (AUTO) 0.5 10^3/uL (0.0-1.0); MONOCYTES % (AUTO) 8.7 %; NEUTROPHILS # (AUTO) 2.3 10^3/uL (1.5-6.6); NEUTROPHILS % (AUTO) 36.7 %; PLT - PLATELET COUNT 251 10^3/uL (130-450); RED BLOOD COUNT 4.33 10^6/uL (4.20-5.40); RED CELL DISTRIBUTION WIDTH 14.7 % (12.0-15.0); WHITE BLOOD COUNT 6.2 x10^3/uL (4.8-10.8)
[2023-07-04 23:43] LABS: ALBUMIN/GLOBULIN RATIO 1.2 (1.0-2.2); BILIRUBIN,TOTAL 0.5 mg/dL (0.2-1.0); CALCIUM 9.5 mg/dL (8.5-10.3); CREATININE 0.5 mg/dL (0.6-1.3); ETOH - ETHANOL 395.4 mg/dL; POTASSIUM 3.4 mmol/L (3.5-4.5); TOTAL PROTEIN 7.3 g/dL (6.4-8.9)
[2023-07-04] MEDS ORDERED: THIAMINE 100 MG/1 ML 2 ML MDV ONE (23:44)
[2023-07-04] MEDS ORDERED: FOLIC ACID 5 MG/1 ML 10ML MDV ONE ×2 (23:44→23:46)
--- NOTE | 2023-07-05 00:03 | XRAY Report ---
PROCEDURE: Chest 1 View X-Ray INDICATIONS: fall from standing, +etoh TECHNIQUE: One view of the chest was acquired. COMPARISON: None. FINDINGS: Surgical changes and devices: None. Lungs and pleura: No pleural effusions or pneumothorax. Lungs are clear. Mediastinum: Mediastinal contours appear normal. Heart size is normal. Bones and chest wall: No suspicious bony lesions. Overlying soft tissues appear unremarkable. IMPRESSION: No acute cardiopulmonary process. Reviewed by: Donta Swartz MD on 07/05/2023 12:[address] [facility] Approved by: Donta Swartz MD on 07/05/2023 12:[address] [facility] Station ID: [id number]
--- NOTE | 2023-07-05 00:04 | XRAY Report ---
PROCEDURE: Pelvis 1 View INDICATIONS: fall from standing TECHNIQUE: 1 view(s) of the pelvis acquired. COMPARISON: None. FINDINGS: Bones: No definite fractures or dislocations. No suspicious bony lesions. Lower lumbar spondylosis. Mild degenerative changes of the bilateral hip. Soft tissues: Visualized bowel gas pattern is normal. No suspicious soft tissue calcifications. IMPRESSION: Pelvis without definite fracture. Degenerative changes of the lower lumbar spine and bilateral hips. If there is persistent high clinical suspicion for occult fracture, further evaluation with CT or MRI can be considered. Reviewed by: Donta Swartz MD on 07/05/2023 12:03 AM [facility] Approved by: Donta Swartz MD on 07/05/2023 12:03 AM PST Station ID: [id number]
--- NOTE | 2023-07-05 01:03 | CT Report ---
PROCEDURE: HEAD WO INDICATIONS: Head trauma, abnormal mental status TECHNIQUE: Noncontrast 4.5 mm thick angled axial sections acquired from the foramen magnum to the vertex. For r adiation dose reduction, the following was used: automated exposure control, adjustment of mA and/or kV according to patient size. COMPARISON: 04/10/2023. FINDINGS: Image quality: Excellent. CSF spaces: Basal cisterns are patent. No extra-axial fluid collections. Ventricles are normal in size and shape. Brain: No midline shift. No intracranial masses or hemorrhage. No mass effect. Hyman-white matter i nterface is normal. There is moderate cerebral volume loss for age with resultant ventricular and [place] prominence. There are moderate periventricular and deep white matter chronic small vessel ischemi c changes. Atherosclerotic calcifications are noted in the intracranial segments of the bilateral int ernal carotid arteries. Skull and face: Calvarium and visualized facial bones are intact, without suspicious lesions. Sinuses: Visualized sinuses and mastoids are clear. IMPRESSION: No acute intracranial pathology. No acute calvarial fracture. Stable age-related senescent changes and sequela of chronic small vessel ischemic disease. Reviewed by: Donta Swartz MD on 07/05/2023 1:02 AM PST Approved by: Donta Swartz MD on 07/05/2023 1:02 AM PST Station ID: [id number]
--- NOTE | 2023-07-05 01:06 | CT Report ---
PROCEDURE: CERVICAL SPINE WO INDICATIONS: Neck trauma, midline tenderness TECHNIQUE: Noncontrast 3 mm thick sections acquired from the skull base to the T4 level. Sagittal and coronal r eformats were then constructed. For radiation dose reduction, the following was used: automated exp osure control, adjustment of mA and/or kV according to patient size. COMPARISON: 04/10/2023 FINDINGS: Image quality: Diagnostic. Bones: No acute fractures or dislocations. No acute compression fractures of the vertebral bodies. Craniocervical junction is intact. C1-C2 relationship is preserved. Visualized superior ribs are inta ct. Moderate multilevel cervical spondylosis. Soft tissues: Prevertebral soft tissues are normal in thickness. No paravertebral hematomas. No ap ical pneumothoraces. IMPRESSION: CT cervical spine without acute fracture or traumatic malalignment. Moderate multilevel cervical spondylosis. Reviewed by: Donta Swartz MD on 07/05/2023 1:05 AM PST Approved by: Donta Swartz MD on 07/05/2023 1:05 AM PST Station ID: [id number]
[2023-07-05] MEDS ORDERED: THIAMINE 100 MG/1 ML 2 ML MDV ONE (01:10)
[2023-07-05] MEDS ORDERED: THIAMINE 100 MG TABLET PO STA (01:53)
[2023-07-05 02:48] LABS: BILIRUBIN,URINE NEGATIVE (NEGATIVE); CLARITY,URINE CLEAR (CLEAR); GLUCOSE, URINE (UA) NEGATIVE (NEGATIVE); KETONES,URINE (UA) NEGATIVE (NEGATIVE); LEUKOCYTE ESTERASE, URINE NEGATIVE (NEGATIVE); NITRITE,URINE NEGATIVE (NEGATIVE); OCCULT BLOOD,URINE NEGATIVE (NEGATIVE); PROTEIN,URINE NEGATIVE (NEGATIVE); UROBILINOGEN,URINE 0.2 (NORMAL) E.U./dL (NORMAL)
[2023-07-05 02:56] LABS: AMPHETAMINE SCREEN,URINE NEGATIVE (NEGATIVE); BARBITURATE SCREEN,UR NEGATIVE (NEGATIVE); BENZODIAZEPINES SCREEN, URINE NEGATIVE (NEGATIVE); BUPRENORPHINE SCREEN, URINE NEGATIVE (NEGATIVE); COCAINE SCREEN URINE NEGATIVE (NEGATIVE); METHADONE SCREEN, URINE NEGATIVE (NEGATIVE); METHAMPHETAMINES SCREEN, URINE NEGATIVE (NEGATIVE); OPIATE SCREEN, URINE NEGATIVE (NEGATIVE); OXYCODONE SCREEN, URINE NEGATIVE (NEGATIVE); THC CANNABINOID SCREEN, URINE NEGATIVE (NEGATIVE); TRICYCLIC ANTIDEPRESSANT,URINE NEGATIVE (NEGATIVE)
[2023-07-05] MEDS ORDERED: SODIUM CHLORIDE 0.9% 1,000 ML IV STA (02:57)
[2023-07-05 05:54] VITALS: O2SAT 94
[2023-07-05 07:29] VITALS: BP 137/82
== END 2023-07-05 07:05 | disposition home or self-care (01) ==
LOC: EDUNIT# → ED 22:24
DX: S00.81XA Abrasion of other part of head, initial encounter (principal); W19.XXXA Unspecified fall, initial encounter; Z91.81 History of falling; I10 Essential (primary) hypertension; I48.91 Unspecified atrial fibrillation; F10.129 Alcohol abuse with intoxication, unspecified; Y90.8 Blood alcohol level of 240 mg/100 ml or more; Z23 Encounter for immunization
CPT/HCPCS: 36415; 70450; 71045; 72125; 72170; 80053; 80306; 81003; 83690; 85025; 90471; 90715; 99283; 99284; A9270; G0480; J3411; 80320; 81001; 87086

== ENCOUNTER 2025-05-16 15:06 | Observation (INO) ==
[2025-05-16 15:28] LABS: HCT - HEMATOCRIT 45.0 % (37.0-47.0); HGB - HEMOGLOBIN 15.0 g/dL (12.0-16.0); MEAN PLATELET VOLUME 8.9 fL (7.9-10.8); NRBC ABSOLUTE COUNT (AUTO) 0.00 x10^3/uL; NUCLEATED RED BLOOD CELLS AUTO 0.0 /100WBC; PLT - PLATELET COUNT 300 10^3/uL (130-450); RED CELL DISTRIBUTION WIDTH 15.9 % (12.0-15.0)
[2025-05-16 15:47] LABS: ALT ALANINE AMINOTRANSFERASE 25.0 IU/L (10-60); AST ASPARTATE AMINOTRANSFERASE 29.0 IU/L (10-42); BUN - BLOOD UREA NITROGEN 7.0 mg/dL (6-20); CARBON DIOXIDE - CO2 24.0 mmol/L (21-32); CREATININE 0.7 mg/dL (0.6-1.3); GFR - MDRD 81.0 (>89)
[2025-05-16 15:50] LABS: TROPONIN I HIGH SENSITIVITY 6.6 ng/L (2.3-14.8)
--- OUTSIDE RECORDS SUMMARY | 2025-05-16 16:44 | EXTERNAL MEDICAL SUMMARY RPT | Continuity of Care Document ---
Author Organization [facility] Address [address] [place] [id number] Phone Results/Labs test date facility value unit notes Result panel 1 ETOH - ETHANOL 2025-05-16 15:24 [facility] < 10.0 mg/dl Blood Alcohol Levels Level Sporadic Drinkers Chronic drinkers 100 mg/dL Legally intoxicated* Minimal signs 200-250 mg/dL Alertness lost, Effort needed to becoming lethargic maintain emotional and motor control 300-350 mg/dL Stupor to coma Drowsy and slow >500 mg/dL Possible Coma *The legal definition of intoxication varies. This assy is for medical decision making only. As of January 2023 testing method has changed, this may include reference ranges. NUCLEATED RED BLOOD CELLS AUTO 2025-05-16 15:24 [facility] 0.0 /100wbc (missing) BASOPHILS # (AUTO) 2025-05-16 15:24 [facility] 0.0 10 3/ul (missing) EOSINOPHILS # (AUTO) 2025-05-16 15:24 [facility] 0.0 10 3/ul (missing) NRBC ABSOLUTE COUNT (AUTO) 2025-05-16 15:24 [facility] 0.00 x10 3/ul (missing) MONOCYTES # (AUTO) 2025-05-16 15:24 [facility] 0.5 10 3/ul (missing) CREATININE 2025-05-16 15:24 [facility] 0.7 mg/dl As of January 2023 test ing method has changed, this may include reference ranges. LYMPHOCYTES # (AUTO) 2025-05-16 15:24 [facility] 1.0 10 3/ul (missing) ALBUMIN/GLOBULIN RATIO 2025-05-16 15:24 [facility] 1.1 (missing) (missing) BILIRUBIN,TOTAL 2025-05-16 15:24 [facility] 1.7 mg/dl As of January 2023 test ing method has changed, this may include reference ranges. WHITE BLOOD COUNT 2025-05-16 15:24 [facility] 10.6 x10 3/ul (missing) MEAN CORPUSCULAR VOLUME 2025-05-16 15:24 [facility] 101.4 fl (missing) GLUCOSE 2025-05-16 15:24 [facility] 113 mg/dl As of January 2023 test ing method has changed, this may include reference ranges. SODIUM 2025-05-16 15:24 [facility] 131 mmol/l (missing) ANION GAP 2025-05-16 15:24 [facility] 15.0 (missing) (missing) HGB - HEMOGLOBIN 2025-05-16 15:24 [facility] 15.0 g/dl (missing) RED CELL DISTRIBUTION WIDTH 2025-05-16 15:24 [facility] 15.9 % (missing) LIPASE 2025-05-16 15:24 [facility] 23 u/l As of January 2023 test ing method has changed, this may include reference ranges. CARBON DIOXIDE - CO2 2025-05-16 15:24 [facility] 24 mmol/l As of January 2023 test ing method has changed, this may include reference ranges. ALT ALANINE AMINOTRANSFERASE 2025-05-16 15:24 [facility] 25 iu/l As of January 2023 test ing method has changed, this may include reference ranges. AST ASPARTATE AMINOTRANSFERASE 2025-05-16 15:24 [facility] 29 iu/l As of January 2023 test ing method has changed, this may include reference ranges. POTASSIUM 2025-05-16 15:24 [facility] 3.3 mmol/l As of January 2023 test ing method has changed, this may include reference ranges. GLOBULIN 2025-05-16 15:24 [facility] 3.9 g/dl (missing) PLT - PLATELET COUNT 2025-05-16 15:24 [facility] 300 10 3/ul (missing) MEAN CORPUSCULAR HGB CONC 2025-05-16 15:24 [facility] 33.3 g/dl (missing) MEAN CORPUSCULAR HEMOGLOBIN 2025-05-16 15:24 [facility] 33.8 pg (missing) ALBUMIN 2025-05-16 15:24 [facility] 4.4 g/dl As of January 2023 test ing method has changed, this may include reference ranges. RED BLOOD COUNT 2025-05-16 15:24 [facility] 4.44 10 6/ul (missing) HCT - HEMATOCRIT 2025-05-16 15:24 [facility] 45.0 % (missing) ALKALINE PHOSPHATASE 2025-05-16 15:24 [facility] 50 iu/l As of January 2023 test ing method has changed, this may include reference ranges. TROPONIN I HIGH SENSITIVITY 2025-05-16 15:24 [facility] 6.6 ng/l A HIGH SENSITIVITY TROPONIN result of >= 14.9 ng/L for females is considered POSITIVE. A HIGH SENSITIVITY TROPONIN result of >= 19.8 ng/L for males is considered POSITIVE. A HIGH SENSITIVITY TROPONIN result of >= 17.9 ng/L for unspecified is considered POSITIVE. BUN - BLOOD UREA NITROGEN 2025-05-16 15:24 [facility] 7 mg/dl As of January 2023 test ing method has changed, this may include reference ranges. TOTAL PROTEIN 2025-05-16 15:24 [facility] 8.3 g/dl As of January 2023 test ing method has changed, this may include reference ranges. MEAN PLATELET VOLUME 2025-05-16 15:24 [facility] 8.9 fl (missing) GFR - MDRD 2025-05-16 15:24 [facility] 81 (missing) The IDMS-traceable M DRD Study Equation has been validated extensively in and populations between the ages of 18 and 70 with impaired kidney function (eGFR < 60 mL/min/1.73m2) and has shown good performance for patients with all common causes of kidney disease. Although this equation has not been validated for patients older than 70, an MDRD-derived eGFR may still be a useful tool for providers caring for patients older than 70. References: http://www.nkdep.nih.gov /lab-evaluation/gfr/crea tinine-tiff ardization, last updated September 2011. NEUTROPHILS # (AUTO) 2025-05-16 15:24 [facility] 9.0 10 3/ul (missing) CALCIUM 2025-05-16 15:24 [facility] 9.9 mg/dl As of January 2023 test ing method has changed, this may include reference ranges. CHLORIDE 2025-05-16 15:24 [facility] 92 mmol/l As of January 2023 test ing method has changed, this may include reference ranges. Result panel 2 GLUCOSE, WHOLE BLOOD 2025-05-16 15:32 [facility] 117 (missing) (missing) Social History date description facility
--- NOTE | 2025-05-16 16:57 | XRAY Report ---
PROCEDURE: XR Chest 1V INDICATIONS: syncope TECHNIQUE: One view of the chest was acquired. COMPARISON: 07/04/2020 FINDINGS: Surgical changes and devices: Cholecystectomy clips are seen. Lungs and pleura: No pleural effusions or pneumothorax. No consolidation. Mediastinum: Mediastinal contours appear normal. Heart size is normal. Bones and chest wall: No suspicious bony lesions. Age-appropriate degenerative changes are seen. Overlying soft tissues appear unremarkable. IMPRESSION: Unremarkable plain film study for age, similar to prior. Reviewed by: Reyes Metcalf MD on 05/16/2025 3:54 PM [facility] Approved by: Reyes Metcalf MD on 05/16/2025 3:54 PM [facility] Station ID: [id number]
[2025-05-16] MEDS: SODIUM CHLORIDE 0.9% 1,000 ML IV STA (17:12)
--- NOTE | 2025-05-16 17:24 | HISTORY & PHYSICAL EXAMINATION ---
Chief Complaint Chief Complaint Chief Complaint: Dizziness, pre-syncope History of Present Illness Admitted From Admitted From:: Home History Obtained From Records Reviewed: EMR History obtained from: Patient Exam Limitations: None History of Present Illness HPI Comment/Other: Patient is a 79 year old female with a history of former alcohol use who presents for lightheadedness and dizziness. She states that for the past 2 days, she has had a very decreased appetite, and has not been drinking much water. She went to the [employer] to get supplies, and felt immediately tired and fatigued. She felt a little lightheaded, leaned forward on the counter, and then was helped down to the ground by the employees there. She does not remember losing consciousness or hitting her head. She said this happened once before about 5 years ago, but does not recall the cause. She has no cardiac or neurological abnormalities that she knows of, but she has not seen a primary care provider in over 10 years. Past medical history includes chronic alcohol use. Medications include aspirin 81 mg daily as well as a multivitamin. She has no known drug allergies that she knows of. Surgical history includes a cholecystecomy. Social history includes drinking a pint of bourbon daily. Her last drink was a week ago. She usually does experience withdrawals, but has been a while. She denies any tobacco or recreational drug use. She lives alone. She does not ambulate with a walker or cane. Her 10 years ago. Meds/Allgy Home Medications Ambulatory Orders Medication Instructions Recorded Confirmed acetaminophen 325 mg tablet 650 mg (2 x 325 mg) PO Q4H R PRN 04/14/23 05/16/25 Pain Or Fever > 38c (100.4f) aspirin 81 mg chewable tablet (St 81 mg PO DAILY for a fib ##0 04/14/23 05/16/25 Isidoro Aspirin) losartan 25 mg tablet 25 mg PO DAILY #30 tabs 04/23 01/14 Allergies Allergies Allergy/AdvReac Type Severity Reaction Status Date / Time No Known Drug Allergies Allergy Verified 05/16/25 15:33 PFSH Active Problems All Active Problems (Updated 05/16/25 @ 17:22 by Farida Naqvi PA-C) Pre-syncope (Acute) Pre-syncope (Acute) Social History Social History Smoking Status: Never smoker Do you dip or chew tobacco?: No Do you vape?: No Patient requests smoking cessation consult: No Initiate information on smoking cessation: No Living arrangement: At home Living Condition: Alone Level: Independent Do you feel safe in your home environment?: Yes History of physical, verbal, emotional, or financial abuse?: No ETOH Use: Beer Frequency: Weekly POLST Patient has POLST: No Review of Systems Constitutional Reports: Fatigue, Weakness and Poor appetite; Denies: Fever, Chills or Malaise Eyes Denies: Pain, Irritation, Blurry vision, Vision loss or Diplopia Ears, nose, mouth, and throat Denies: Ear pain, Hearing loss, Tinnitus, Nose bleeds or Nasal discharge Cardiovascular Reports: Syncope and lightheadedness; Denies: Irregular heart rate, chest pain, palpitations, edema or shortness of breath with exertion Respiratory Denies: Shortness of breath, Cough, Sputum production or Wheezing Gastrointestinal Denies: Abdominal pain, Abdominal distention, Nausea, Vomiting, Heartburn, Diarrhea or Constipation Genitourinary Denies: Painful urination, Urinary frequency or Urinary urgency Musculoskeletal Denies: Back pain Integumentary/Breast Denies: Rash, Itching or Dryness Neurological Reports: General weakness and Dizziness; Denies: Headache, Weakness in extremities, Numbness in extremities or Abnormal gait Psychiatric Denies: Depression, Anxiety, Mood swings or Panic attacks Endocrine Reports: Fatigue; Denies: Excessive urination or Excessive thirst Hematologic/Lymphatic Denies: Anemia, Easy bruising or Easy bleeding Allergic/Immunologic Denies: Hives, Tongue swelling, Facial swelling or Wheezing Prior Level of Functionality: Independent of ADLs. Lives alone. Exam Exam Vital Signs: Vital Signs x48h Temp Pulse Resp BP Pulse Ox 05/17/25 11:34 97.9 F 98 18 173/88 H 95 05/17/25 09:00 97.9 F 96 18 164/90 H 95 Constitutional normal general appearance, no apparent distress, average body habitus and no limitations HENMT normocephalic, head/scalp atraumatic and hearing grossly normal bilaterally Eyes PERRL, EOMs intact bilaterally and conjunctivae normal Neck/C-Spine visual inspection normal, trachea midline and cervical spine nontender Chest inspection of chest normal Respiratory breath sounds equal bilaterally, normal respiratory effort, clear to auscultation bilaterally, no wheezes, no rales and no retractions Cardiovascular heart rate abnormal (tachycardic), regular rhythm noted, no gallop, no rub and no murmur Gastrointestinal abdomen normal to inspection, abdomen soft to palpation, nontender to palpation and normoactive bowel sounds Genitourinary no CVA tenderness and bladder normal to palpation Back/Pelvis spine normal to inspection, no thoracic spine tenderness and no lumbar spine tenderness Extremities normal to inspection, normal to palpation, no tenderness and full ROM Neurology no movement abnormality noted and no focal motor deficit noted Psychiatry mental status grossly normal, oriented x3, thought process normal, cooperative and affect normal Skin skin color normal, no rash, no lesions and no wounds Conclusion/Plan Problem List (1) Pre-syncope: Plan: Patient presents with decreased P.O. intake, feelings of light-headedness and dizziness, and positive orthostatic vital signs. Likely due to orthostatic hypotension. Continue IV rehydration overnight. Will re-check in AM. Continue telemetry overnight. ECHO ordered to rule out valvular disease. Consider CT head, MRI if non-resolving. D-dimer, adjusted for age, is normal. On room air, mild tachycardia noted. No signs or symptoms of DVT. Wells Criteria of 1.5 for tachycardia; low likelihood of PE. (2) Hyponatremia: Plan: Likely due to decreased P.O. intake. Goal correction of 6-8 mEQ in 24 hours. (3) Hypokalemia: Plan: Repleted, continue to trend. (4) Alcohol abuse: Plan: Continue thiamine, multivitamin, folic acid. Not currently in active withdrawal. Lab Results Lab results reviewed: Yes 05/17/25 09:01 05/17/25 12:59 Diagnostic Imaging Results Diagnostic Imaging Results: positive Final report reviewed EKG Results EKG Interpreted Independently: Yes Core Measures Anticipated LOS I expect patient to be DC'd or transferred within 96 hours.: Yes Issues Hospital Issues and Management Plan: None anticipated. DVT/VTE - Prophylaxis VTE/DVT Device ordered at admit?: No VTE/DVT Prophylaxis med ordered at admit?: Yes Stroke - Rehab Assessment Rehab services assessment to be ordered?: No Not Ordered - Medical Reason: Not indicated AMI - Statin at Admit Aspirin Prescribed on Admit: No Not Ordered - Medical Reason: Not indicated
--- NOTE | 2025-05-16 17:25 | ED Physician Documentation ---
"History of Present Illness Stated complaint Stated Complaint: Pre Syncope Chief complaint Chief Complaint: Neuro History obtained from History obtained from: Patient History of Present Illness Timing: Prior to arrival Additonal information Additional information: Patient is a 79-year-old female presenting to the emergency department after a dizzy spell while at the [employer]. She notes she was checking out when she felt very weak had to lay down on the counter and was assisted by staff down to the ground. She is unsure if she lost consciousness but did not hit her head she is not on any blood thinners at baseline. She had positive orthostatics by EMS on arrival and was started on 300 cc of fluid. No nausea or vomiting. She notes she did not eat breakfast this morning she is not on any other medications other than an aspirin daily. She is not usually follow-up with a doctor in the outpatient setting no chest pain or shortness of breath prior to coming in. She had a similar episode of this she describes many years ago and was monitored overnight in the hospital but had no acute findings. She denies any numbness tingling or unilateral weakness no persistent dizziness or lightheadedness chest pain or shortness of breath on arrival as well. She has a history of alcohol abuse but denies any drinking today. She denies any withdrawal symptoms Meds/Allgy Home Medications Ambulatory Orders Medication Instructions Recorded Confirmed acetaminophen 325 mg tablet 650 mg (2 x 325 mg) PO Q4H R PRN 04/14/23 05/16/25 Pain Or Fever > 38c (100.4f) aspirin 81 mg chewable tablet (St 81 mg PO DAILY for a fib ##0 04/14/23 05/16/25 Isidoro Aspirin) Allergies Allergies Allergy/AdvReac Type Severity Reaction Status Date / Time No Known Drug Allergies Allergy Verified 05/16/25 15:33 PFSH Active Problems All Active Problems (Updated 05/16/25 @ 17:22 by Farida Naqvi PA-C) Pre-syncope (Acute) Pre-syncope (Acute) Social History Social History Do you dip or chew tobacco?: No Do you vape?: No Patient requests smoking cessation consult: No Initiate information on smoking cessation: No Living arrangement: At home Living Condition: Alone Level: Dependent Do you feel safe in your home environment?: Yes History of physical, verbal, emotional, or financial abuse?: No ETOH Use: Beer Frequency: Weekly POLST Patient has POLST: No Exam Exam Vital Signs: Vital Signs x48h Temp Pulse Resp Pulse Ox 05/16/25 15:12 36.9 C 101 H 18 98 Results Vitals Vitals: Vital Signs - 24 hr 05/16/25 15:12 Temperature 36.9 C Temperature Source Temporal Artery Scan Pulse Rate 101 H Respiratory Rate 18 O2 Saturation 98 O2 Source Room air Pain Intensity 0 Oxygen O2 Source Room air EKG (time done) 1537: EKG releavant findings:: EKG personally interpreted by author of this note. Relevant findings are: prolonged Qtc Rate: Rate (enter#) (99 bpm) Rhythm: NSR Posey: Normal Intervals: Normal DE QRS: QRS normal Ischemia: Normal ST segments Compare to prior EKG: Changed from prior EKG (previous ekg shows atrial fibrillation) Computer interpretation: Agree with computer Labs Labs: Laboratory Tests 05/16/25 05/16/25 15:24 15:32 WBC 10.6 RBC 4.44 Hgb 15.0 Hct 45.0 MCV 101.4 H MCH 33.8 H MCHC 33.3 RDW 15.9 H Plt Count 300 MPV 8.9 Neut # (Auto) 9.0 H Lymph # (Auto) 1.0 L Forrest # (Auto) 0.5 Eos # (Auto) 0.0 Baso # (Auto) 0.0 Absolute Nucleated RBC 0.00 Nucleated RBC % 0.0 Sodium 131 L Potassium 3.3 L Chloride 92 L Carbon Dioxide 24 Anion Gap 15.0 H BUN 7 Creatinine 0.7 Estimated GFR (MDRD) 81 L Glucose 113 H POC Whole Bld Glucose 117 Calcium 9.9 Total Bilirubin 1.7 H AST 29 ALT 25 Alkaline Phosphatase 50 Troponin I High Sens 6.6 Total Protein 8.3 Albumin 4.4 Globulin 3.9 Albumin/Globulin Ratio 1.1 Lipase 23 Ethyl Alcohol < 10.0 PD Medical Decision Making ED course Complexity details: reviewed old records and reviewed results ED course: Patient is a 79-year-old female presenting to the emergency department with concerns for presyncope. She was brought in by EMS after she felt extremely weak when checking out [place] [employer]. She notes she had to lay her head down and had to be assisted down by a staff at the [employer]. Unsure of any loss of consciousness but she did not hit her head. No nausea vomiting chest pain unilateral weakness numbness or tingling at time of injury. Patient is on an aspirin daily but has history of alcohol abuse. She apparently has a history of atrial fibrillation and is seen in her previous workup but is not taking any metoprolol or blood thinners at this time. She denies any alcohol use today. Vital stable here in the emergency department normotensive afebrile minimal tachycardia 101 on arrival. Saturating well on room air CBC is unremarkable and CMP shows mild hyponatremia at 131 mild hypokalemia at 3.3 anion gap of 15 but GFR of 81 on arrival to the bilirubin minimally elevated at 1.7 but this is baseline for patient. No other electrolyte abnormality but pending magnesium here in the ED. EKG shows normal sinus rhythm but she does have slightly prolonged QTc on arrival. CXR: Unremarkable plain film study for age, similar to prior. Discussed case with Dr. Lambert who is agreeable with admission and patient will stay overnight for syncope work up. |Patient is agreeable with this plan. Discharge Plan Discharge Patient Disposition: [facility] DC/Xfer Condition: Stable Clinical Impression: Pre-syncope Prescriptions: No Action acetaminophen 325 MG tablet 650 mg PO Q4HR PRN (Reason: Pain Or Fever > 38c (100.4f)) 0RF aspirin [St Isidoro Aspirin] 81 MG tablet,chewable 81 mg PO DAILY Qty: 0 0RF Print Language: Lithuanian"
[2025-05-16] MEDS: POTASSIUM BICARB 25 MEQ TABLET PO STA (17:41)
[2025-05-16] MEDS ORDERED: ACETAMINOPHEN 325 MG TABLET PO PRN (18:48)
[2025-05-16] MEDS ORDERED: ONDANSETRON 4 MG/2 ML VIAL IVP PRN (18:48)
[2025-05-16] MEDS ORDERED: ONDANSETRON ODT 4 MG TABLET TL PRN (18:48)
[2025-05-16] MEDS ORDERED: SODIUM CHLORIDE FLUSH 0.9% 10 ML SYRINGE IVP PRN (18:48)
[2025-05-16] MEDS: LACTATED RINGERS 1,000 ML IV SCH (19:08)
[2025-05-16 22:51] LABS: AMPHETAMINE SCREEN,URINE NEGATIVE (NEGATIVE); BARBITURATE SCREEN,UR NEGATIVE (NEGATIVE); BENZODIAZEPINES SCREEN, URINE NEGATIVE (NEGATIVE); BUPRENORPHINE SCREEN, URINE NEGATIVE (NEGATIVE); COCAINE SCREEN URINE NEGATIVE (NEGATIVE); METHADONE SCREEN, URINE NEGATIVE (NEGATIVE); METHAMPHETAMINES SCREEN, URINE NEGATIVE (NEGATIVE); OPIATE SCREEN, URINE NEGATIVE (NEGATIVE); THC CANNABINOID SCREEN, URINE NEGATIVE (NEGATIVE)
[2025-05-17] MEDS: SODIUM CHLORIDE FLUSH 0.9% 10 ML SYRINGE IVP SCH (00:03)
--- NOTE | 2025-05-17 07:40 | Discharge Summary ---
"Discharge Summary Admit Date: 05/16/25 Discharge Date: 05/17/25 Discharging Provider: Dr. Avinash Ac Primary Care Provider: Kassidy Maxwell listed in chart but patient states she hasn't seen a PCP Code Status: Attempt Resuscitation Discharge Facility Name: Home, self care DIAGNOSES Discharge Diagnoses with Status of Each Condition: Pre-syncope Patient presented with decreased P.O. intake, feelings of light- headedness and dizziness, and positive orthostatic vital signs. Likely due to orthostatic hypotension. Received IV fluids overnight, and is feeling much better. Echo was performed, final read is pending. Telemetry overnight did not show any arrhythmias noted. D-dimer was normal when age-adjusted, less concern for PE, Wells criteria was just 1 for tachycardia. Overall, patient was advised to continue oral hydration at home, take her time getting up slowly, and follow- up closely with the primary care provider. Hyponatremia Likely due to decreased P.O. intake. Advised to continue to encourage adequate P.O. intake. Hypokalemia Repleted, continue to trend. Alcohol abuse Continue thiamine, multivitamin, folic acid. Not currently in active withdrawal. Advised to abstain from EtOH use. Hypertension Patient has a prior diagnosis of hypertension. She was previously on medications, but has not followed up with a primary care provider in many years. Will start losartan, low-dose, and was advised to follow-up with primary care provider in the outpatient for continued follow-up. HPI History of Present Illness: Patient is a 79 year old female with a history of former alcohol use who presents for lightheadedness and dizziness. She states that for the past 2 days, she has had a very decreased appetite, and has not been drinking much water. She went to the [employer] to get supplies, and felt immediately tired and fatigued. She felt a little lightheaded, leaned forward on the counter, and then was helped down to the ground by the employees there. She does not remember losing consciousness or hitting her head. She said this happened once before about 5 years ago, but does not recall the cause. She has no cardiac or neurological abnormalities that she knows of, but she has not seen a primary care provider in over 10 years. Past medical history includes chronic alcohol use. Medications include aspirin 81 mg daily as well as a multivitamin. She has no known drug allergies that she knows of. Surgical history includes a cholecystecomy. Social history includes drinking a pint of bourbon daily. Her last drink was a week ago. She usually does experience withdrawals, but has been a while. She denies any tobacco or recreational drug use. She lives alone. She does not ambulate with a walker or cane. Her 10 years ago. CONSULTS | PROCEDURES Procedures: ECHO HOSPITAL COURSE Hospital Course: Patient is a 79 year old female with a history of former alcohol use who presents for lightheadedness and dizziness. She states that for the past 2 days, she has had a very decreased appetite, and has not been drinking much water. She went to the [employer] to get supplies, and felt immediately tired and fatigued. She felt a little lightheaded, leaned forward on the counter, and then was helped down to the ground by the employees there. She does not remember losing consciousness or hitting her head. She said this happened once before about 5 years ago, but does not recall the cause. She has no cardiac or neurological abnormalities that she knows of, but she has not seen a primary care provider in over 10 years. Received IV fluids overnight, and is feeling much better. Echo was performed, final read is pending. Telemetry overnight did not show any arrhythmias noted. D-dimer was normal when age-adjusted, less concern for PE, Wells criteria was just 1.5 for tachycardia. Overall, patient was advised to continue oral hydration at home, take her time getting up slowly, and follow-up closely with the primary care provider. Patient has a prior diagnosis of hypertension. She was previously on medications, but has not followed up with a primary care provider in many years. Will start losartan, low-dose, and was advised to follow-up with primary care provider in the outpatient for continued follow-up. ALLERGIES Allergies Allergy/AdvReac Type Severity Reaction Status Date / Time No Known Drug Allergies Allergy Verified 05/16/25 15:33 MEDICATIONS Ambulatory Orders Medication Instructions Recorded Confirmed acetaminophen 325 mg tablet 650 mg (2 x 325 mg) PO Q4H R PRN 04/14/23 05/16/25 Pain Or Fever > 38c (100.4f) aspirin 81 mg chewable tablet (St 81 mg PO DAILY for a fib ##0 04/14/23 05/16/25 Isidoro Aspirin) losartan 25 mg tablet 25 mg PO DAILY #30 tabs 04/23 01/14 PHYSICAL EXAM AT DISCHARGE Vital Signs: Vital Signs x48h Temp Pulse Resp BP Pulse Ox 05/17/25 11:34 97.9 F 98 18 173/88 H 95 05/17/25 09:00 97.9 F 96 18 164/90 H 95 Constitutional normal general appearance, no apparent distress, average body habitus and no limitations HENMT normocephalic, head/scalp atraumatic and hearing grossly normal bilaterally Eyes PERRL, EOMs intact bilaterally and conjunctivae normal Neck/C-Spine visual inspection normal, trachea midline and cervical spine nontender Chest inspection of chest normal Respiratory breath sounds equal bilaterally, normal respiratory effort, clear to auscultation bilaterally, no wheezes, no rales and no retractions Cardiovascular heart rate abnormal (tachycardic), regular rhythm noted, no gallop, no rub and no murmur Gastrointestinal abdomen normal to inspection, abdomen soft to palpation, nontender to palpation and normoactive bowel sounds Genitourinary no CVA tenderness and bladder normal to palpation Back/Pelvis spine normal to inspection, no thoracic spine tenderness and no lumbar spine tenderness Extremities normal to inspection, normal to palpation, no tenderness and full ROM Neurology no movement abnormality noted and no focal motor deficit noted Psychiatry mental status grossly normal, oriented x3, thought process normal, cooperative and affect normal Skin skin color normal, no rash, no lesions and no wounds LABS 05/17/25 09:01 05/17/25 12:59 FOLLOW UP Follow Up: Follow up and establish care with PCP. TIME SPENT Time Spent in Discharge (Minutes): 35 Discharge Plan Discharge Patient Disposition: Home, Self Care Condition: Stable Prescriptions: New losartan 25 mg tablet 25 mg PO DAILY Qty: 30 0RF Continued acetaminophen 325 MG tablet 650 mg PO Q4HR PRN (Reason: Pain Or Fever > 38c (100.4f)) 0RF aspirin [St Isidoro Aspirin] 81 MG tablet,chewable 81 mg PO DAILY Qty: 0 0RF Diet: Regular Interventions: Belongings Inventory Last Done: 05/16/25 19:29 Health Concerns: You came in because you are feeling lightheaded and dizzy. You endorsed that you have not been eating and drinking much at home. We checked your blood pressure while you were lying down, sitting and standing up, and it dropped quite a bit when you change positions. This is called orthostatic hypotension. It resolved quickly with IV fluids when we rehydrated you. We also get an ultrasound of your heart. If there are any abnormal findings, I will be giving you a call to discuss this. You need to continue follow-up with your primary care provider in the outpatient setting. I understand that you have not seen her in many years. While you have been here, after treating your acute dehydration, we noted that your blood pressure has been very elevated. I understand this has been the case in the past, and you have been prescribed antihypertensives, but stopped seeing a healthcare professional for many years. As such, I will be restarting you on losartan (brand name: Cozaar) to help lower your blood pressure and protect your kidneys. - How to take your medicine: Take losartan exactly as directed, usually once a day. Try to take it at the same time each day. If you miss a dose, take it as soon as you remember, but skip it if its almost time for your next dose. Do not take two doses at once. - Possible side effects: The most common side effects are dizziness, tiredness, and back pain. Some people may also notice a stuffy nose or mild stomach upset. If you feel faint or very dizzy, especially when standing up, sit or lie down and let your healthcare provider know. - Serious side effects: Rarely, losartan can cause swelling of the face, lips, throat, or tongue (angioedema). If this happens, get medical help right away. Other rare side effects include muscle weakness, chest pain, or signs of an allergic reaction. - Important precautions: - Potassium: Do not use potassium supplements or salt substitutes containing potassium unless your healthcare provider says its okay. Losartan can increase potassium levels in your blood. - Kidney function:Your healthcare provider may check your kidney function and potassium levels with blood tests while you are taking losartan.[1][2] - Dehydration: Drink enough fluids, especially during hot weather, exercise, or if you have vomiting or diarrhea. Dehydration can make side effects worse. - When to call your healthcare provider: Contact your provider if you notice swelling, trouble breathing, severe dizziness, fainting, muscle weakness, or any other unusual symptoms. We are glad you're feeling better. Thank you for allowing us to take care of you. Print Language: Croatian Patient Instructions: Losartan Stand Alone Forms: PCP List Follow-up Care: Kassidy Maxwell MD [Primary Care Provider, Internal Medicine] Vitals documented within 30 minutes of discharge?: Yes"
[2025-05-17 09:22] LABS: HCT - HEMATOCRIT 40.3 % (37.0-47.0); HGB - HEMOGLOBIN 14.0 g/dL (12.0-16.0); MEAN PLATELET VOLUME 9.0 fL (7.9-10.8); PLT - PLATELET COUNT 271.0 10^3/uL (130-450); RED CELL DISTRIBUTION WIDTH 15.8 % (12.0-15.0)
[2025-05-17] MEDS: ENOXAPARIN 40 MG/0.4 ML SYRINGE SUBQ SCH (09:24)
[2025-05-17] MEDS: ASPIRIN CHEW 81 MG TABLET PO SCH (09:25)
[2025-05-17 09:32] VITALS: TEMP 97.9; O2SAT 95
[2025-05-17 09:33] LABS: BUN - BLOOD UREA NITROGEN 6.0 mg/dL (6-20); CARBON DIOXIDE - CO2 25.0 mmol/L (21-32); CREATININE 0.6 mg/dL (0.6-1.3); GFR - MDRD 97.0 (>89)
[2025-05-17] MEDS ORDERED: POTASSIUM CHLORIDE 20 MEQ TABLET PO ONE ×2 (09:43→13:26)
[2025-05-17 11:36] VITALS: BP 173/88
--- NOTE | 2025-05-17 13:06 | PHARMACY PROGRESS NOTE ---
Best Possible Medication History Admit Date and Time: 05/16/25 1722 Home Medications Medication Instructions Recorded Confirmed Type acetaminophen 325 mg tablet 650 mg (2 x 325 mg) PO Q4H R PRN 04/14/23 05/16/25 Rx Pain Or Fever > 38c (100.4f) aspirin 81 mg chewable tablet (St 81 mg PO DAILY for a fib ##0 04/14/23 05/16/25 Rx Isidoro Aspirin) losartan 25 mg tablet 25 mg PO DAILY #30 tabs 04/23 01/14 Rx Processed by: Nursing Medications reviewed in ED?: Yes Medication History completed: Yes [facility] Statement: As the person ultimately responsible for medication therapy, providers are able to order a medication from an existing home medication list in [facility] via the "Reconcile Routine" prior to Confirmation of that medication by business support. Such practice is discouraged except when the physician, in their clinical judgment, deems that a medical need exists for a medication without regard to previous use.
--- NOTE | 2025-05-17 22:07 | ECHO Report ---
Version: 1 Study ID: [id number] Adult Echocardiogram Report Name: RENETTA MURILLO Study Date: 05/17/2025, 8: 46 AM BP: 157 / 93 mmHg Patient Location: [facility] [place]^220^01 HR: 103 bpm : 1945 (MM/DD/YYYY) Gender: Female Height: 65 in Age: 79 Years Weight: 165 lb BSA: 1.82 m² Reason For Study: syncope History: Previous study 06/13/22-EF 55-60%, Mild MR, Trace PI/TR. Interpretation Summary Global left ventricular systolic function is normal. The calculated ejection fraction, as determined by the biplane method of disks, is 65%. The right ventricle is normal in size and function. No concerning cardiac valve disease noted. Left Ventricle: The left ventricle is normal in size. No thrombus seen in the left ventricle. The calculated ejection fraction, as determined by the biplane method of disks, is 65%. Global left ventricular systolic function is normal. No regional wall motion abnormalities are present. Right Ventricle: The right ventricle is normal in size and function. TAPSE is consistent with normal right ventricular function. The tricuspid annular plane systolic excursion (TAPSE) measurement is 1.7 cm. Aortic Valve: The aortic valve is moderately calcified. The aortic valve is trileaflet. No hemodynamically significant valvular aortic stenosis. Trace aortic regurgitation is present. Mitral Valve: The mitral valve leaflets are structurally normal with normal motion. No evidence of mitral stenosis is seen. There is mild mitral regurgitation. Tricuspid Valve: The tricuspid valve is structurally normal. There is no tricuspid stenosis. Trace tricuspid regurgitation present. Pulmonic Valve: The pulmonic valve is normal in structure and function. There is no pulmonic valvular stenosis. Trace pulmonic valvular regurgitation is present. Left Atrium: The left atrial size is normal. Right Atrium: Right atrial size is normal. The inferior vena cava appears normal. Atrial Septum: The interatrial septum appears normal, without evidence of shunt by 2D imaging and color Doppler. Aorta: The ascending aorta is normal in size. The transverse arch is normal in size. The sinuses of Valsalva are normal in size. Pulmonary Artery: The pulmonary artery is not well visualized, but is probably normal size. Pulmonary artery systolic pressure could not be estimated due to an insufficient tricuspid regurgitant jet. Inferior vena cava dynamics indicate normal right atrial pressures. Pericardium/Pleural Space: There is no pericardial effusion. Left Ventricle IVSd: 0.85 cm LVIDd: 3.9 cm LVPWd: 0.77 cm LVIDs: 2.5 cm EDV(MOD-sp4): 54.2 ml LVLd ap4: 7.4 cm ESV(MOD-sp4): 27.1 ml ESV(sp4-el): 40.7 ml LVLs ap4: 6.4 cm EDV(MOD-sp2): 46.8 ml ESV(MOD-sp2): 22.3 ml Right Ventricle TAPSE: 1.72 cm RV S Chaitanya: 12.7 cm/sec Atria LA dimension: 4.9 cm LAV(MOD-sp4): 28.1 ml LAV(MOD-sp2): 26.2 ml Diastolic Function MV dec time: 0.23 sec MV E max chaitanya: 108.8 cm/sec MV A max chaitanya: 123.1 cm/sec Aortic Valve LVOT diam: 2.12 cm LV V1 mean P.68 mmHg LV V1 mean: 62.4 cm/sec LV V1 VTI: 16.4 cm Ao V2 VTI: 22.5 cm Ao mean P.1 mmHg Ao V2 mean: 83.9 cm/sec LV V1 max: 83.4 cm/sec LV V1 max P.8 mmHg Ao max P.1 mmHg Ao V2 max: 113.3 cm/sec Mitral Valve MV max P.0 mmHg MV V2 max: 132.4 cm/sec MV mean P.9 mmHg MV V2 mean: 79.6 cm/sec MV V2 VTI: 38.6 cm Aorta Ao root diam: 3.0 cm MMode/2D Measurements & Calculations Ao root diam: 3.0 cm BMI: 27.5 kilograms/m² [facility] 1[facility]87 m² EDV(MOD-sp2): 46.8 ml EDV(MOD-sp4): 54.2 ml ESV(MOD-sp2): 22.3 ml ESV(MOD-sp4): 27.1 ml ESV(sp4-el): 40.7 ml IVSd: 0.85 cm LA A4C-A/L: 15.8 cm² LA dimension: 4.9 cm LA ESV-A/L: 40.8 ml LA Vol Index: 31.6 ml/m² LAV(MOD-sp2): 26.2 ml LAV(MOD-sp4): 28.1 ml LVIDd: 3.9 cm LVIDs: 2.5 cm LVLd ap4: 7.4 cm LVLs ap4: 6.4 cm LVOT diam: 2.12 cm LVPWd: 0.77 cm RA A4Cs: 6.8 cm² TAPSE: 1.72 cm Doppler Measurements & Calculations Ao max P.1 mmHg Ao mean P.1 mmHg Ao V2 max: 113.3 cm/sec Ao V2 mean: 83.9 cm/sec Ao V2 VTI: 22.5 cm LV V1 max: 83.4 cm/sec LV V1 max P.8 mmHg LV V1 mean: 62.4 cm/sec LV V1 mean P.68 mmHg LV V1 VTI: 16.4 cm MV A max chaitanya: 123.1 cm/sec MV dec time: 0.23 sec MV DVI-pr: 0.88 MV E max chaitanya: 108.8 cm/sec MV max P.0 mmHg MV mean P.9 mmHg MV V2 max: 132.4 cm/sec MV V2 mean: 79.6 cm/sec MV V2 VTI: 38.6 cm PA max P.4 mmHg PA V2 max: 91.8 cm/sec RV S Chaitanya: 12.7 cm/sec Other Measurements & Calculations Ao root area: 6.9 cm² BRANDAN(I,D): 2.6 cm² BRANDAN(V,D): 2.6 cm² EDV(Teich): 65.4 ml EF(MOD-sp2): 52.5 % EF(MOD-sp4): 50.0 % EF(sp-el): 57.9 % EF(Teich): 65.5 % ESV(Teich): 22.5 ml FS: 35.4 % LVOT area: 3.5 cm² MV E/A: 0.88 MVA(VTI): 1.49 cm² SV(LVOT): 57.6 ml SV(MOD-sp4): 27.1 ml MD Gwen Colon 05/17/2025, 10: 06 PM Ordering Physician: Avinash Ac Referring Physician: Farida Naqvi Performed By: [facility]
== END 2025-05-17 15:00 | disposition home or self-care (01) ==
LOC: ED 15:06 → MS2 15:06
PROVIDERS: ADMIT Internal Medicine; ATTEND Internal Medicine
DX: R00.0 Tachycardia, unspecified; Z90.49 Acquired absence of other specified parts of digestive tract; I10 Essential (primary) hypertension; Z68.28 Body mass index [BMI] 28.0-28.9, adult; F10.10 Alcohol abuse, uncomplicated; Z79.82 Long term (current) use of aspirin; R53.1 Weakness; R63.0 Anorexia; I48.91 Unspecified atrial fibrillation; E87.6 Hypokalemia; E86.0 Dehydration; E87.1 Hypo-osmolality and hyponatremia; I95.1 Orthostatic hypotension